=== PATIENT | female | born 1950 | race Caucasian/White ===

== ENCOUNTER 2020-03-25 07:17 | Outpatient (CLI) | payer MEDICARE, SELFPAY ==
--- NOTE | 2020-03-25 07:23 | US_ITS ---
WS: [id number] Complete ABDOMINAL ULTRASOUND HISTORY: RLQ PAIN COMPARISON: None available. Liver: 15.8 cm in length. Liver is normal size and echogenicity with no mass or intrahepatic dilatati on. Gallbladder: Prior cholecystectomy. Pancreas: Poorly visualized pancreas. No abnormality of fluid seen. CBD: 0.3 cm. Right kidney: 9.8 cm x 4.2 cm x 4.5 cm. No mass, cortical thickening or hydronephrosis. Left kidney: 9.5 cm x 4.8 cm x 5.0 cm. No mass, cortical thickening or hydronephrosis. Spleen: Normal size spleen. A few scattered granulomata noted. Abdominal aorta and IVC are within normal limits. No ascites. US/US abdomen complete* [id number] IMPRESSION: 1. Prior cholecystectomy. 2. No bile duct dilatation. 3. Negative kidneys.
== END 2020-03-25 07:18 | disposition home or self-care (01) ==
LOC: RAD 07:20
PROVIDERS: Family Provider Nurse Practitioner Family; Visit Provider Nurse Practitioner Family
DX: R10.31 Right lower quadrant pain (principal)
CPT/HCPCS: 76700

== ENCOUNTER 2020-07-08 11:03 | Emergency (ER) | payer MEDICARE, SELFPAY ==
[2020-07-08 11:09] VITALS: BP 173/97; PULSE 92; RESP 18; TEMP 36.9; O2SAT 95; BMI 29.0
[2020-07-08 11:15] VITALS: BP 173/97; PULSE 96; RESP 16; O2SAT 94
--- NOTE | 2020-07-08 11:21 | CT_ITS ---
WS: [id number] CT HEAD TECHNIQUE: Noncontrast CT of the head obtained from the skullbase to the vertex. CLINICAL INFORMATION: slurred speech/SILVERIO COMPARISON: CT 3 and April 19, 2007 DLP: 1087.[address] scans at [facility] use at least one of these dose optimization techniques: automat ed exposure control; mA and/or kV adjustment per patient size (includes targeted exams where dose is matched to clinical indication); or iterative reconstruction. FINDINGS: No evidence of intracranial hemorrhage or mass effect. Ventricular system and basal cisterns are chambers nt. Mild small vessel changes with mild parenchymal volume loss. 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 Low-lying cerebellar tonsils unchanged. Chronic lacunar infarcts left lateral basal ganglia. No extra -axial fluid collections.Normal darling-white differentiation. 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 Paranasal sinuses and mastoid air cells are well aerated. .Normal visualized soft tissues. CT/CT head wo con* [id number] IMPRESSION: 1. No evidence of intracranial hemorrhage or mass effect. 2. Stable posterior fossae Dandy-Walker variant unchanged. 3. No hydrocephalus. 4. No acute intracranial findings. Attempted notification Jerica Gamez MD at 07/08/2020 12:31 PM.
[2020-07-08] MEDS: diphenhydrAMINE 50 mg/mL SDV 1mL IVP (11:27)
[2020-07-08] MEDS: famotidine 20 mg/2 mL INJ 40 MG IVP (11:29)
--- NOTE | 2020-07-08 11:29 | ECG_ITS ---
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 Measurements Intervals [place] Rate: 89 P: 66 HI: 130 QRS: 18 QRSD: 86 T: 26 QT: 387 QTc: 473 Interpretive Statements SINUS RHYTHM NONSPECIFIC T-WAVE ABNORMALITY Compared to ECG 04/22/2019 10:43:07 T-wave abnormality now present Possible ischemia no longer present Electronically Signed On 07-08-2020 21:40:29 CDT by Luanne Quintana M.D. [id number]
--- NOTE | 2020-07-08 11:29 | XRR_ITS ---
PROCEDURE INFORMATION: Exam: XR Chest, 1 View Exam date and time: 07/08/2020 11:40 AM Age: 70 years old Clinical indication: Shortness of breath; Additional info: SOB TECHNIQUE: Imaging protocol: XR of the chest Views: 1 view. COMPARISON: CT chest con [id number] 06/26/2019 1:11 PM FINDINGS: Lungs: Few mild interstitial fibrotic densities are present which can also be seen on old CT scan. Otherwise lungs are clear. Pleural space: Unremarkable. No pleural effusion. No pneumothorax. Heart/Mediastinum: Unremarkable. No cardiomegaly. Bones/joints: Unremarkable. XR/XR chest 1V portable [id number] IMPRESSION: No acute abnormality.
[2020-07-08] MEDS: ondansetron 2 mg/ML SDV 2 mL 4 MG IVP (11:45)
--- NOTE | 2020-07-08 11:48 | ED_ITS ---
HPI - Allergic Reaction General: Chief complaint: Allergic Reaction Stated complaint: Allergic reaction Time Seen by Provider: 07/08/20 11:09 History of Present Illness: HPI narrative: This patient is a 70-year-old female who comes in today with complaints of thinking that she had an allergic reaction to some peach pie that she ate last night. She said her symptoms started last night but her daughter did not become aware of them until this morning. She said she feels like her throat is closing and her mouth is extremely dry. She says she is unable to swallow but she is managing her secretions. She was not able to swallow a Benadryl pill this morning and that is why her daughter brought her in. She has had episodes like this before but her daughter says is never really been confirmed that they were allergic reactions. The patient says that she almost was intubated one time in the past. She also has a history of Dandy-Walker variation and has had a seizure history as well. She also has a history of hypertension. She has been out of her at [facility] and just got it refilled this morning but has not taken 1. Her medication lists in our system reflect lisinopril rather than atenolol. She takes Keppra for her seizures and that is also not on her current med list. She also complains of a headache in the posterior part of her head. Her daughter notes that her speech is slurred and that is not normal for her. She has no focal weakness. No facial droop. Denies visual changes. Onset (ago): day(s) (1) Exposure: food Associated symptoms: Reports dysphagia, hoarseness and other (Slurred speech, headache) Severity: moderate Treatment prior to arrival: none Previous Allergic Reaction History: prior ED visit(s) and angioedema (Possibly, per patient's description) Review of Systems General: Reports: 10 or more systems reviewed and unremarkable except in HPI and below Const: Denies: fever(s), chills, fatigue or malaise Eyes: Denies: change in vision ENMT: Reports: odynophagia, hoarseness, swelling of lips/tongue and dry mouth Card: Denies: chest pain or swelling of feet/ankles Resp: Denies: dyspnea, productive cough or non-productive cough GI: Reports: dysphagia : Denies: flank pain or difficulty voiding Musc: Denies: neck pain or back pain Skin/Breast: Denies: rash Neuro: Reports: headache(s); Denies: numbness in extremities or weakness in extremities Sterling/Lymph: Denies: easy bruising or easy bleeding Physical Exam Const: COMMON NORMALS: patient oriented x3 and alert GENERAL APPEARANCE: cooperative HENMT: HEAD & SCALP: normal to inspection FACE & SINUS: normal facial exam MOUTH: other (Mucous membranes dry however I do not see any evidence of any swelling of the tongue or posterior pharynx) Eye: GENERAL EYE: appearance normal, both eyes and all related structures Neck/C-Spine: COMMON NORMALS: supple, no meningeal signs and no JVD Chest: COMMONS NORMALS: normal inspection of the chest Resp: COMMON NORMALS: normal respiratory effort, No use of accessory muscles and clear to auscultation bilaterally AUSCULTATION: clear to auscultation bilaterally Cardio: COMMON NORMALS: no JVD, regular rate, regular rhythm and No murmurs present (Cardio) RATE: regular rate RHYTHM: regular rhythm GI: COMMON NORMALS: Normal to inspection, nondistended, normoactive bowel sounds present, Soft to palpation and non-tender INSPECTION: Yes normal to inspection AUSCULTATION: Yes normoactive bowel sounds PALPATION: Yes Soft to palpation Back/Pelvis: COMMON NORMALS: thoracic and lumbar spine normal to inspection Extremity: COMMON NORMALS: normal to inspection Neuro: COMMON NORMALS: patient oriented x3, moves all extremities, no focal motor deficits and no sensory deficits noted SENSORIUM/ORIENTATION: Yes alert MENINGEAL SIGNS: Yes no meningeal signs CRANIAL NERVES: Yes other (Slurred speech but no clear cranial nerve deficit.) SPEECH: abnormal speech Details: slurred Psych: COMMON NORMALS: mental status grossly normal, cooperative and normal affect Skin: COMMON NORMALS: no rashes or lesions noted and turgor normal GENERAL SKIN EXAM: no rashes or lesions noted and turgor normal Course ED course: The patient symptoms almost completely resolved after treatment for allergy. If this is an allergic reaction is significantly mild 1. We discussed other possible diagnoses such as partial seizures, lisinopril, stroke. I think the lisinopril is unlikely as she has been having the symptoms and episodes for about 20 years and has only been on the lisinopril for about 6 months. I do think that partial seizure could explain her symptoms. I do not think she has had a stroke. Again, with 20 years of episodes like this it is unlikely that would be the explanation. She has not seen a neurologist. I recommended that perhaps she should. I do not think this is anything to do with her Chiari malformation or Dandy-Walker issues. CT head was negative today. The rest of her work-up was also normal. Vital Signs: Vital signs: Vital Signs Temperature 98.5 F 07/08/20 11:09 Pulse Rate 89 07/08/20 14:01 Respiratory Rate 16 07/08/20 16:04 Blood Pressure 130/72 07/08/20 16:04 Pulse Oximetry 97 07/08/20 16:04 MDM - Allergic Reaction Lab Data: Labs: Lab Results 07/08/20 07/08/20 07/08/20 Range/Units 12:42 12:42 12:42 WBC 7.2 (4.0-10.0) 10^3/ uL RBC 4.32 (4.1-5.3) 10^6/u L Hgb 12.6 (11.5-15.3) g/dL Hct 40.8 (37.0-47.0) % MCV 94.4 (81-99) fL MCH 29.2 (28.0-34.0) pg MCHC 30.9 (30.0-36.0) g/dL RDW 12.5 (12.1-15.1) % Plt Count 207 (130-400) 10^3/c mm MPV 11.9 H (7.4-10.4) fL Neut % (Auto) 53.5 % Lymph % (Auto) 31.4 % [place]field % (Auto) 7.7 % Eos % (Auto) 5.7 % Baso % (Auto) 1.1 % Neut # (Auto) 3.87 (1.8-7.7) 10^3/u L Lymph # (Auto) 2.3 (0.8-4.8) 10^3/u L Whitfield # (Auto) 0.6 (0.2-0.9) 10^3/u L Eos # (Auto) 0.4 (0.0-0.8) 10^3/u L Baso # (Auto) 0.1 (0.0-0.1) 10^3/u L Nucleated RBC % (a uto) 0 % Nucleated RBCs # 0.0 /100WBC Sodium 143 (136-145) mmol/L Potassium 4.0 (3.5-5.1) mmol/L Chloride 107 (98-107) mmol/L Carbon Dioxide 26 (22-29) mmol/L Anion Gap 14.0 (5-19) BUN 15 (8-23) mg/dL Creatinine 0.8 (0.5-0.9) mg/dL GFR Calculation 70.9 L (90-130) mL/min Glucose 93 (65-115) mg/dL Calculated Osmolal ity 297 H (285-295) mOsm/k g Calcium 8.9 (8.5-10.5) mg/dL Total Bilirubin 0.4 (0.15-1.2) mg/dL AST 18 (0-32) U/L ALT 17 (0-33) U/L Alkaline Phosphata se 81 (35-105) IU/L Troponin T Baselin e 10 (0-10) ng/L Troponin T 120 Min sun'aq (0-10) ng/L Delta Troponin T (0-10) ABS# Total Protein 6.3 L (6.6-8.7) g/dL Albumin 3.9 (3.5-5.2) g/dL Globulin 2.4 (1.3-4.6) g/dL 07/08/ Range/Units 14:46 WBC (4.0-10.0) 10^3/ uL RBC (4.1-5.3) 10^6/u L Hgb (11.5-15.3) g/dL Hct (37.0-47.0) % MCV (81-99) fL MCH (28.0-34.0) pg MCHC (30.0-36.0) g/dL RDW (12.1-15.1) % Plt Count (130-400) 10^3/c mm MPV (7.4-10.4) fL Neut % (Auto) % Lymph % (Auto) % Whitfield % (Auto) % Eos % (Auto) % Baso % (Auto) % Neut # (Auto) (1.8-7.7) 10^3/u L Lymph # (Auto) (0.8-4.8) 10^3/u L Whitfield # (Auto) (0.2-0.9) 10^3/u L Eos # (Auto) (0.0-0.8) 10^3/u L Baso # (Auto) (0.0-0.1) 10^3/u L Nucleated RBC % (a uto) % Nucleated RBCs # /100WBC Sodium (136-145) mmol/L Potassium (3.5-5.1) mmol/L Chloride (98-107) mmol/L Carbon Dioxide (22-29) mmol/L Anion Gap (5-19) BUN (8-23) mg/dL Creatinine (0.5-0.9) mg/dL GFR Calculation (90-130) mL/min Glucose (65-115) mg/dL Calculated Osmolal ity (285-295) mOsm/k g Calcium (8.5-10.5) mg/dL Total Bilirubin (0.15-1.2) mg/dL AST (0-32) U/L ALT (0-33) U/L Alkaline Phosphata se (35-105) IU/L Troponin T Baselin e (0-10) ng/L Troponin T 120 Min sun'aq 7.70 (0-10) ng/L Delta Troponin T -2.30 L (0-10) ABS# Total Protein (6.6-8.7) g/dL Albumin (3.5-5.2) g/dL Globulin (1.3-4.6) g/dL Discharge Plan Discharge Patient Disposition: Home Clinical Impression: Dysarthria Allergic reaction Qualifiers: Encounter type: initial encounter Qualified Code(s): T78.40XA - Allergy, unspecified, initial encounter Condition: Stable Prescriptions: No Action gabapentin 600 mg tablet 600 mg PO TID RF: 0 duloxetine 60 mg capsule,delayed release(DR/EC) 60 mg PO DAILY Qty: 90 RF: 0 glipizide 2.5 mg tablet extended release 24hr 2.5 mg PO DAILY RF: 0 ranitidine HCl 150 mg capsule PO RF: 0 lisinopril 2.5 mg tablet 2.5 mg PO DAILY RF: 0 diphenhydramine HCl [Benadryl] 25 mg capsule 25 mg PO DAILY PRNRF: 0 Jardiance 10 mg tablet 10 mg PO DAILY RF: 0 levocetirizine [Allergy Relief (levocetirizin)] 5 mg tablet 5 mg PO DAILY RF: 0 aspirin [Adult Aspirin Regimen] 81 mg tablet,delayed release (DR/EC) 81 mg PO DAILY RF: 0 Discharge Orders: Discharge Order (Routine); Ordered 07/08/20 Ordered By: Jerica Gamez Referrals: Denae Vuong MD [Physician] - Tania Dawson NP [Primary Care Provider] - Discharge Diet: Usual diet Discharge Activity: Resume usual activity Patient Instructions: Food Allergy (ED) Activity Restrictions/Additional Instructions: Follow-up with Dr. Vuong. Discuss your concerns about the oxygen level with her. It may be helpful to get a pulse oximeter so you can monitor your blood oxygen at home. Also ask about seeing a neurologist for evaluation of these episodes as they potentially could be related to seizure or some other neurologic issue. Discharge Date/Time: 07/08/20 16:06 Coding Level of Care Code ED [employer] Science Teacher for Chg Fwd Exam Comprehensive
[2020-07-08 13:07] LABS: Basophils # 0.1 10^3/uL (0.0-0.1); Basophils % 1.1 %; Eosinophils # 0.4 10^3/uL (0.0-0.8); Eosinophils % 5.7 %; Hematocrit 40.8 % (37.0-47.0); Hemoglobin 12.6 g/dL (11.5-15.3); Lymphocytes # 2.3 10^3/uL (0.8-4.8); Lymphocytes % 31.4 %; Mean Corpuscular HGB Conc 30.9 g/dL (30.0-36.0); Mean Corpuscular Hemoglobin 29.2 pg (28.0-34.0); Mean Corpuscular Volume 94.4 fL (81-99); Mean Platelet Volume 11.9 fL (7.4-10.4); Monocytes # 0.6 10^3/uL (0.2-0.9); Monocytes % 7.7 %; Neutrophils # 3.87 10^3/uL (1.8-7.7); Neutrophils % 53.5 %; Nucleated Red Blood Cells % 0 %; Platelet Count 207 10^3/cmm (130-400); Red Blood Count 4.32 10^6/uL (4.1-5.3); Red Cell Distribution Width 12.5 % (12.1-15.1); White Blood Count 7.2 10^3/uL (4.0-10.0)
[2020-07-08 13:11] VITALS: BP 130/78; PULSE 86; RESP 15; O2SAT 93
[2020-07-08 13:16] LABS: Alanine Aminotransferase 17 U/L (0-33); Albumin Level 3.9 g/dL (3.5-5.2); Alkaline Phosphatase 81 IU/L (35-105); Aspartate Amino Transferase 18 U/L (0-32); Blood Urea Nitrogen 15 mg/dL (8-23); Calcium 8.9 mg/dL (8.5-10.5); Carbon Dioxide 26 mmol/L (22-29); Chloride 107 mmol/L (98-107); Creatinine Clr Calc Pharmacy 70.4897; Globulin 2.4 g/dL (1.3-4.6); Glomerular Filtration Rate 70.9 mL/min (90-130); Glucose 93 mg/dL (65-115); Osmolality Calculated 297 mOsm/kg (285-295); Sodium 143 mmol/L (136-145); Total Bilirubin 0.4 mg/dL (0.15-1.2); Total Protein 6.3 g/dL (6.6-8.7)
[2020-07-08 13:17] LABS: Troponin(5th) Baseline 10 ng/L (0-10)
[2020-07-08 14:01] VITALS: BP 134/81; PULSE 89; RESP 21; O2SAT 99
[2020-07-08 16:04] VITALS: BP 130/72; RESP 16; O2SAT 97
--- NOTE | 2020-07-08 17:29 | ECG_ITS ---
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 Measurements Intervals [place] Rate: 84 P: 60 [place]: 144 QRS: 15 QRSD: 86 T: 27 QT: 401 QTc: 477 Interpretive Statements SINUS RHYTHM NONSPECIFIC T-WAVE ABNORMALITY Compared to ECG 07/08/2020 11:54:37 No significant changes Electronically Signed On 07-08-2020 21:46:21 CDT by Luanne Quintana M.D. [id number]
== END 2020-07-08 16:06 | disposition home or self-care (01) ==
PROVIDERS: Emergency Provider Emergency Medicine; PCP Nurse Practitioner Family
DX: T78.40XA Allergy, unspecified, initial encounter (principal); R47.1 Dysarthria and anarthria; Z79.82 Long term (current) use of aspirin; Z79.84 Long term (current) use of oral hypoglycemic drugs
CPT/HCPCS: 12345; 70450; 71045; 80053; 84484; 85025; 93005; 96374; 96375; 99283; 99284; J1200; J2405; J2930; J3490

== ENCOUNTER 2020-08-01 10:36 | Outpatient (CLI) | payer MEDICARE, SELFPAY | END 2020-08-01 10:37 | disposition home or self-care (01) | LOC: LAB 10:42 | PROVIDERS: PCP Family Medicine; Visit Provider Internal Medicine Pulmonary Disease | DX: T78.3XXA Angioneurotic edema, initial encounter (principal); X58.XXXA Exposure to other specified factors, initial encounter | CPT/HCPCS: 36415; 86160 ==

== ENCOUNTER → 2020-08-02 12:29 | Outpatient (BNVA) | payer MEDICARE, SELFPAY | PROVIDERS: PCP Family Medicine; Visit Provider Internal Medicine Pulmonary Disease | DX: Z11.59 Encounter for screening for other viral diseases (principal); R06.02 Shortness of breath | CPT/HCPCS: 87635 ==

== ENCOUNTER 2020-08-06 09:57 | Outpatient (CLI) | payer MEDICARE, SELFPAY ==
--- NOTE | 2020-08-06 09:33 | PFTS_ITS ---
Date of Study:08/06/20 Date of Dictation: 08/07/2020 MECHANICS: Forced vital capacity (FVC) is 85% normal Forced expiratory volume in one second (FEV1) is 98% normal FEV1/FVC is normal FLOW VOLUME LOOP: Normal . LUNG VOLUMES: Total lung capacity (TLC) is normal. Residual volume (RV) is . Normal DIFFUSING CAPACITY FOR CARBON MONOXIDE: 63% mild reduction in gas transfer . INTERPRETATION: The pulmonary function tests are normal with isolated mild reduction in gas transfer suspected pulmonary vascular disease. Please correlate clinically MTDD
--- NOTE | 2020-08-06 10:45 | PFTS_ITS ---
Date of Study:08/06/20 Date of Dictation: MECHANICS: Forced vital capacity (FVC) is . Forced expiratory volume in one second (FEV1) is . FEV1/FVC is . FLOW VOLUME LOOP: . LUNG VOLUMES: Total lung capacity (TLC) is . Residual volume (RV) is . DIFFUSING CAPACITY FOR CARBON MONOXIDE: . INTERPRETATION: The pulmonary function tests are . mechanics and lung volumes. Gas exchange (DLCO) is . MTDD
--- NOTE | 2020-08-06 11:30 | CT_ITS ---
WS: [id number] CT CHEST high-resolution. HISTORY: rule out interstitial lung disease TECHNIQUE: High-resolution CT performed with inspiration, expiration, supine and prone positioning. C oronal and sagittal reformats are submitted. All CT scans at [facility] use at least one of these dose optimization techniques: automated exposure control; mA and/or kV adjustment per patien t size (includes targeted exams where dose is matched to clinical indication); or iterative reconstru ction. CONTRAST: None DLP: 259.99 mGy.cm COMPARISON: 06/26/2019 3 mm stable nodule RIGHT upper lung is unchanged since 10/06/2016. Lungs are mildly hyperexpanded. The re is some very minimal atelectasis in the anterior RIGHT upper lobe. No honeycombing or significant peripheral reticulations are identified. Interstitium tapers normally towards the periphery. On the e xpiration film there is volume loss bilaterally with increasing areas of groundglass opacification co nsistent with normal excretory findings. No definite bronchiectasis. Bronchoarterial ratio does not e xceed 1.0. No pleural effusion or pericardial effusion. Thyroid is enlarged and extends slightly substernal. Prior cholecystectomy. CT/CT chest wo con [id number] IMPRESSION: 1. No significant interstitial lung disease identified. There is no honeycombi ng or reticulation. 2. No bronchiectasis.
== END 2020-08-06 09:58 | disposition home or self-care (01) ==
PROVIDERS: PCP Family Medicine; Visit Provider Internal Medicine Pulmonary Disease
DX: R06.02 Shortness of breath (principal); J44.9 Chronic obstructive pulmonary disease, unspecified
CPT/HCPCS: 71250; 94010; 94618; 94726; 94729

== ENCOUNTER 2021-02-19 10:44 | Outpatient (CLI) | payer MEDICARE, SELFPAY ==
--- NOTE | 2021-02-19 11:00 | MR_ITS ---
WS: [id number] MRI RIGHT KNEE HISTORY: RIGHT ANTERIOR KNEE PAIN COMPARISON: RIGHT knee radiographs 01/27/2021 Anterior cruciate ligament: Intact. Posterior cruciate ligament: Intact. Medial collateral ligament: Intact. Posterior lateral corner structures: Negative. Medial menisci: Very small amount of increased signal in the posterior horn. No tear identified. Lateral meniscus: Intact. Normal signal, size and shape. Extensor mechanism: Distal quadriceps tendon and patellar tendons are intact. Fluid and soft tissue: No joint effusion. No Bustillo's cyst. Osseous and articular structures: Patellofemoral compartment: Mild narrowing of patellofemoral joint space. Subchondral cystic changes are noted along the posterior surface of the patella near the patellar eminence and in the lateral fa cet. There is mild thinning and loss of cartilage. Full thickness cartilage defect measures 4 mm at t he patellar eminence. Medial compartment: Mild narrowing of the medial compartment. No marrow edema. Very minimal fissuring of the cartilage. Lateral compartment: Very minimal narrowing of the lateral compartment with fissuring of the cartilag e. MR/MR knee RT wo con* [id number] IMPRESSION: 1. 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 2. Subchondral cystic changes along the posterior surface of the patella, grea test along the lateral facet. 3. No meniscal tear is identified.
== END 2021-02-19 10:45 | disposition home or self-care (01) ==
PROVIDERS: PCP Family Medicine; Visit Provider Family Medicine
DX: M25.561 Pain in right knee (principal); M22.41 Chondromalacia patellae, right knee
CPT/HCPCS: 73721

== ENCOUNTER → 2021-02-20 12:03 | Outpatient (BNVA) | payer MEDICARE, SELFPAY | PROVIDERS: PCP Family Medicine; Referring Provider Family Medicine; Visit Provider Specialist | DX: M25.561 Pain in right knee (principal); M25.761 Osteophyte, right knee | CPT/HCPCS: 73560; 73565 ==

== ENCOUNTER 2021-03-25 08:37 | Day surgery (SDC) | payer MEDICARE, SELFPAY ==
[2021-03-25] VITALS (22 sets, daily range): BP systolic 92–125; BP diastolic 50–62; PULSE 56–92; RESP 12–22; TEMP 36.3–36.6; O2SAT 91–97; BMI 29.9
--- NOTE | 2021-03-25 09:05 | PC.NURSE ---
Patient reports that she has had abdominal pain for the last 5 days. Reports presence of nausea, diarrhea, headache, and fever. Reports pain as a 6 on the numeric pain scale and describes as cramping. Reports that she has had diaphoresis present during this time. Reports pain to RLQ.
--- NOTE | 2021-03-25 09:11 | XRR_ITS ---
PROCEDURE INFORMATION: Exam: XR Abdomen Exam date and time: 03/25/2021 9:11 AM Age: 70 years old Clinical indication: Abdominal pain; Localized; Right lower quadrant (rlq); Patient HX: SOB, fever, cramping; Additional info: Rlq abd pain TECHNIQUE: Imaging protocol: XR of the abdomen. Views: Frontal supine view of the abdomen. 1 View. COMPARISON: CR XR knees AP WB w RT lmt ORTH 02/20/2021 12:10 PM FINDINGS: Gastrointestinal tract: No dilated gas-filled loops of bowel. No calcified appendicolith identified. Organs: Clips in the right upper quadrant from a prior cholecystectomy. Bones/joints: Multilevel disc degeneration and facet arthropathy in the lower lumbar spine. Other findings: No radiopaque calculi. XR/XR KUB portable [id number] IMPRESSION: No acute abnormality.
--- NOTE | 2021-03-25 09:11 | XRR_ITS ---
PROCEDURE INFORMATION: Exam: XR Chest Exam date and time: 03/25/2021 9:11 AM Age: 70 years old Clinical indication: Cough and shortness of breath; Patient HX: SOB, fever, cramping, right shoulder pain; Additional info: Abd pain; Cough TECHNIQUE: Imaging protocol: XR of the chest. Views: 1 view. COMPARISON: CT chest wo con [id number] 08/06/2020 11:31:02 AM FINDINGS: Lungs: No pneumonia or pulmonary edema. Pleural spaces: No pleural effusion or pneumothorax. Heart/Mediastinum: The cardiac silhouette is not enlarged. The mediastinal contours are normal. Bones/joints: No acute osseous abnormality. XR/XR chest 1V portable [id number] IMPRESSION: No acute abnormality.
--- NOTE | 2021-03-25 09:13 | ECG_ITS ---
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: : 1950 Requested By: Edwin Car Order Number: [id number] Reading MD: LEV GUILLORY Measurements Intervals [place] Rate: 77 P: 38 PA: 158 QRS: -3 QRSD: 91 T: 16 QT: 395 QTc: 447 Interpretive Statements SINUS RHYTHM MODERATE VOLTAGE CRITERIA FOR LVH, CONSIDER NORMAL VARIANT [MEETS CRITERIA IN ONE OF: R(aVL), S(V1), R(V5), R(V5/V6)+S(V1)] INFERIOR MYOCARDIAL INFARCTION [40+ ms Q WAVE AND/OR ST/T ABNORMALITY IN II/aVF], PROBABLY OLD Compared to ECG 07/08/2020 13:47:04 Myocardial infarct finding now present T-wave abnormality no longer present Electronically Signed On 03-25-2021 20:12:30 CDT by LEV GUILLORY [id number]
--- NOTE | 2021-03-25 09:15 | ED_ITS ---
HPI - Abdominal Pain General: Chief Complaint: Abdominal Pain Stated Complaint: Cramps, Fever, N/D Time Seen by Provider: 03/25/21 08:56 Source: patient and family Mode of arrival: ambulatory Limitations: no limitations History of Present Illness: HPI narrative: Patient with complaints of right lower quadrant abdominal pain for the past 5 days. Patient said diarrhea and nausea. Patient denies any blood in her stool. She has had intermittent fever over the past 5 days. Patient said decreased appetite and intermittent diaphoresis and mild to moderate frontal headache. Patient reports chronic cough due to her COPD. Intermittent mild shortness of breath. No shortness of breath now. No vomiting. Main complaint is right lower quadrant abdominal pain. She still has her appendix. She does have past surgical history of cholecystectomy, , total abdominal hysterectomy and BSO. Patient has a history of COPD, diabetes mellitus and hypertension MD elicited complaint: abdominal pain Pertinent past history: other (See nursing assessment) Onset (ago): day(s) (5) Pain Consistency: constant Location: RLQ Severity: moderate Quality: aching and sharp Radiation: none Migration to: no migration Exacerbating factors: nothing Relieving factors: nothing Associated Symptoms: Reports anorexia, change in stool character, diarrhea, fever(s), nausea and poor appetite; Denies constipation, dysuria, hematochezia, hematuria, hematemesis, melena and vomiting Review of Systems Const: Reports: fever(s), change in appetite (Poor appetite), fatigue and diaphoresis Eyes: Denies: change in vision ENMT: Denies: throat pain Card: Denies: chest pain or palpitations Resp: Reports: non-productive cough; Denies: dyspnea or wheezing GI: Reports: abdominal pain, nausea, diarrhea and change in stool character; Denies: vomiting, hematemesis, constipation, hematochezia or melena : Denies: flank pain, dysuria or hematuria Musc: Denies: neck pain or back pain Skin/Breast: Denies: rash or pruritus Neuro: Reports: headache(s); Denies: numbness in extremities, weakness in extremities or Slurred speech present Psych: Denies: anxiety [place]/Lymph: Denies: enlarged lymph nodes PFSH ED PFSH: Medical History COPD (chronic obstructive pulmonary disease) Diabetes mellitus History of malignant melanoma Hypertension Nodule of right lung Seizures Social History Smoking and tobacco status: former smoker Quit status (tobacco): has quit using tobacco Year quit tobacco: 2004 [id number] Second hand smoke exposure: Yes Smoking risk assessment/counseling performed?: Yes Alcohol intake: current Alcohol intake frequency: holidays/special occasions only Desire information about alcohol rehabilitation?: No Counseling given: No Caregiver/support person: Yes Lives independently: Yes Household members: spouse Housing: House Marital status: Current occupational status: retired History of recent travel: No Current gender identity: Female Physical Exam Const: COMMON NORMALS: patient oriented x3, no limitations, alert and well nourished (Obese) GENERAL APPEARANCE: cooperative OTHER: Moderate discomfort due to right lower quad abdominal pain. Patient also has a mild headache. Patient is nauseated. She has mild diaphoresis. HENMT: COMMON NORMALS: normocephalic and atraumatic HEAD & SCALP: normocephalic and atraumatic FACE & SINUS: normal facial exam Eye: COMMON NORMALS: Equal, round and reactive pupils present and EOMs intact bilaterally PUPIL: Yes Equal, round and reactive pupils present OTHER: No photophobia Neck/C-Spine: COMMON NORMALS: full ROM, no lymphadenopathy, supple, no meningeal signs and no JVD GENERAL: Yes normal visual inspection Lymph: LYMPHATIC: no lymphadenopathy noted Chest: COMMONS NORMALS: normal inspection of the chest and normal palpation of entire chest wall CHEST: No Ecchymosis present and No rash Resp: COMMON NORMALS: normal respiratory effort, No retractions, No use of accessory muscles and clear to auscultation bilaterally EFFORT & INSPECTION: No respiratory distress AUSCULTATION: clear to auscultation bilaterally Cardio: COMMON NORMALS: no JVD, regular rate, regular rhythm and Peripheral pulses 2+ throughout JUGULAR VENOUS DISTENTION: no JVD RATE: regular rate RHYTHM: regular rhythm PERIPHERAL PULSES: Peripheral pulses 2+ throughout OTHER: Capillary refill normal bilaterally GI: COMMON NORMALS: Soft to palpation and No hepatosplenomegaly present AUSCULTATION: Yes normoactive bowel sounds PALPATION: Yes Soft to palpation, Yes Tenderness to palpation present (GI) (Moderate tenderness right lower quadrant. No guarding or rebound.) and Yes No hepatosplenomegaly present Extremity: COMMON NORMALS: normal to inspection, full ROM and capillary refill normal Neuro: COMMON NORMALS: patient oriented x3, CN's II-XII intact bilaterally, no focal motor deficits and no sensory deficits noted SENSORIUM/ORIENTATION: Yes alert MENINGEAL SIGNS: Yes no meningeal signs Psych: COMMON NORMALS: mental status grossly normal and Normal thought process present THOUGHT PROCESS: Normal thought process present Skin: COMMON NORMALS: no rashes or lesions noted and no wounds GENERAL SKIN EXAM: no rashes or lesions noted Course Vital Signs: Vital signs: Vital Signs Temperature 98 F 03/25/21 09:02 Pulse Rate 78 03/25/21 11:00 Respiratory Rate 18 03/25/21 11:00 Blood Pressure 105/52 03/25/21 11:00 Pulse Oximetry 94 03/25/21 11:00 MDM - Abdominal Pain MDM Narrative: Medical decision making narrative: 1138: Case discussed with Dr. Frost general surgeon. He plans to take to the patient to the operating room today for appendectomy. Differential Diagnosis: Differential diagnosis abdominal pain: Likely abdominal pain, acute appendicitis, diverticulitis and small bowel obstruction Lab Data: Attestation: I reviewed the patient's lab results. Labs: Lab Results 03/25/21 03/25/21 03/25/21 Range/Units 09:29 09:30 09:30 WBC (4.0-10.0) 10^3/ uL RBC (4.1-5.3) 10^6/u L Hgb (11.5-15.3) g/dL Hct (37.0-47.0) % MCV (81-99) fL MCH (28.0-34.0) pg MCHC (30.0-36.0) g/dL RDW (12.1-15.1) % Plt Count (130-400) 10^3/c mm MPV (7.4-10.4) fL Neut % (Auto) % Lymph % (Auto) % [place] % (Auto) % Eos % (Auto) % Baso % (Auto) % Neut # (Auto) (1.8-7.7) 10^3/u L Lymph # (Auto) (0.8-4.8) 10^3/u L [place] # (Auto) (0.2-0.9) 10^3/u L Eos # (Auto) (0.0-0.8) 10^3/u L Baso # (Auto) (0.0-0.1) 10^3/u L Nucleated RBC % (a uto) % Nucleated RBCs # /100WBC Specimen Type Arterial Sample Site Radial, right ABG pH 7.45 (7.35-7.45) ABG pCO2 38.0 (35-45) mmHg ABG pO2 62.1 L (80.0-100.0) mmH g ABG HCO3 26.5 H (22-26) mmol/L ABG Base Excess 2.5 H (-2.0-2.0) mmol/ L Chato Test Pos Hematocrit 43.7 (37-47) % Hgb O2 Saturation 92.3 L (95-100) % Carboxyhemoglobin 0.5 (0.4-20.1) %THgb Methemoglobin 0.6 (0.4-1.5) % Total Hemoglobin 14.3 (12-16) g/dL O2 Delivery Device Room air FiO2 21.0 % [employer] Worker ID [place]ro Sodium (136-145) mmol/L Potassium (3.5-5.1) mmol/L Chloride (98-107) mmol/L Carbon Dioxide (22-29) mmol/L Anion Gap (5-19) BUN (8-23) mg/dL Creatinine (0.5-0.9) mg/dL GFR Calculation (90-130) mL/min Glucose (65-115) mg/dL Calculated Osmolal ity (285-295) mOsm/k g Lactate (0.5-2.2) mmol/L Calcium (8.5-10.5) mg/dL Total Bilirubin (0.15-1.2) mg/dL AST (0-32) U/L ALT (0-33) U/L Alkaline Phosphata se (35-105) IU/L Total Protein (6.6-8.7) g/dL Albumin (3.5-5.2) g/dL Globulin (1.3-4.6) g/dL Lipase (13-60) U/L Influenza Type A A g Negative (Negative) Influenza Type B A g Negative (Negative) SARS-CoV-2 Ag (Rap id) Negative (Negative) 03/25/21 03/25/21 03/25/21 Range/Units 09:50 09:50 09:50 WBC 8.2 (4.0-10.0) 10^3/ uL RBC 4.94 (4.1-5.3) 10^6/u L Hgb 14.5 (11.5-15.3) g/dL Hct 44.2 (37.0-47.0) % MCV 89.5 (81-99) fL MCH 29.4 (28.0-34.0) pg MCHC 32.8 (30.0-36.0) g/dL RDW 13.6 (12.1-15.1) % Plt Count 92 L (130-400) 10^3/c mm MPV 14.0 H (7.4-10.4) fL Neut % (Auto) 43.8 % Lymph % (Auto) 41.0 % [place] % (Auto) 13.1 % Eos % (Auto) 0.2 % Baso % (Auto) 0.9 % Neut # (Auto) 3.59 (1.8-7.7) 10^3/u L Lymph # (Auto) 3.4 (0.8-4.8) 10^3/u L [place] # (Auto) 1.1 H (0.2-0.9) 10^3/u L Eos # (Auto) 0.0 (0.0-0.8) 10^3/u L Baso # (Auto) 0.1 (0.0-0.1) 10^3/u L Nucleated RBC % (a uto) 0 % Nucleated RBCs # 0.0 /100WBC Specimen Type Sample Site ABG pH (7.35-7.45) ABG pCO2 (35-45) mmHg ABG pO2 (80.0-100.0) mmH g ABG HCO3 (22-26) mmol/L ABG Base Excess (-2.0-2.0) mmol/ L [place] Test Hematocrit (37-47) % Hgb O2 Saturation (95-100) % Carboxyhemoglobin (0.4-20.1) %THgb Methemoglobin (0.4-1.5) % Total Hemoglobin (12-16) g/dL O2 Delivery Device FiO2 % [employer] Worker ID Sodium 136 (136-145) mmol/L Potassium 3.8 (3.5-5.1) mmol/L Chloride 96 L (98-107) mmol/L Carbon Dioxide 29 (22-29) mmol/L Anion Gap 14.8 (5-19) BUN 14 (8-23) mg/dL Creatinine 1.2 H (0.5-0.9) mg/dL GFR Calculation 44.4 L (90-130) mL/min Glucose 140 H (65-115) mg/dL Calculated Osmolal ity 285 (285-295) mOsm/k g Lactate 1.5 (0.5-2.2) mmol/L Calcium 8.6 (8.5-10.5) mg/dL Total Bilirubin 0.6 (0.15-1.2) mg/dL AST 37 H (0-32) U/L ALT 28 (0-33) U/L Alkaline Phosphata se 88 (35-105) IU/L Total Protein 7.0 (6.6-8.7) g/dL Albumin 3.9 (3.5-5.2) g/dL Globulin 3.1 (1.3-4.6) g/dL Lipase 38 (13-60) U/L Influenza Type A A g (Negative) Influenza Type B A g (Negative) SARS-CoV-2 Ag (Rap id) (Negative) Imaging Data ^: KUB: Attestation: I personally reviewed and interpreted this imaging study as follows: My impression: Nothing acute on KUB CXR: Attestation: I personally reviewed and interpreted this imaging study as follows: My impression: Portable chest x-ray shows nothing acute. CT Abd/Pel: Radiologist's impression: [place] Espinoza #: [id number]: 1950Acct#:[id number]/Sex: 70 / FADM Date: 03/25/21Loc: ERRoom/Bed:Attending Dr: Ordering Provider/Ordering MD: Edwin Garcia MD Date of Service: 03/25/21 Procedure(s): CT abdomen pelvis w con* [id number] Accession Number(s): [id number] Report Number: [id number] WS: [id number] CT ABDOMEN AND PELVIS WITH CONTRAST HISTORY: pain TECHNIQUE: Imaging performed of the abdomen and pelvis with IV contrast. Single phase imaging of the abdomen. Coronal and sagittal reformats are submitted. All CT scans at [facility] use at least one of these dose optimization techniques: automated exposure control; mA and/or kV adjustment per patient size (includes targeted exams where dose is matched to clinical indication); or iterative reconstruction. IV CONTRAST: Omnipaque 300; 95 mL IV. Oral contrast: Yes. DLP: 1883.47 mGy.cm COMPARISON: None available. Lower thorax: Lung bases are clear. Heart is normal size. No hiatal hernia. Liver/biliary system: Normal size liver. Mild central bile duct dilatation is probably physiologic. Gallbladder: Status post cholecystectomy. Pancreas: Normal size pancreas and pancreatic duct. No adjacent inflammation. Spleen: Normal size spleen. No mass or infarct. Adrenal glands: Normal. Right kidney: Mild atrophy and diffuse focal areas of cortical thinning. No obstruction. Left kidney: Mild cortical atrophy with no obstruction. Aorta: Mild atherosclerosis with no aneurysm. Lymphadenopathy: None. Free fluid: None. GI tract: Mild dilatation and soft tissue inflammation involving the base of the appendix and the cecum. There is an area of decreased attenuation extending into the cecum and base of the appendix. High density within the wall of the cecum extending towards the appendix. This density could be oral contrast or calcification. The distal appendix is normal. Abdominal wall: Unremarkable abdominal wall. No hernia. Pelvis: No free fluid or adenopathy within the pelvis. Bones: Mild degenerative disc disease at L5-S1. CT/CT abdomen pelvis w con* [id number] IMPRESSION: 1. Focal dilatation and inflammatory change at the base of the appendix. Additional low-attenuation in the cecum. Consider acute appendicitis versus appendiceal mucocele. 2. No free fluid or free air. 3. Prior cholecystectomy. 4. No GI tract obstruction. Notified Edwinmacrina Garcia MD at 03/25/2021 11:35 AM. Dictated By:Nancy Ramirez DOSigned By:Nancy Ramirez DOSigned Date/Time:03/25/21 1137 EKG Data ^: EKG 1: Attestation: I personally reviewed and interpreted this EKG as follows: EKG interpretation date: 03/25/21 EKG interpretation time: 09:27 Prior EKG tracings: not available for review Interpretation: Normal sinus rhythm with normal axis. Heart rate 77, nonspecifi c ST-T changes, normal T waves, normal P waves, normal KS interval, normal QRS interval. Discharge Plan Discharge Patient Disposition: Placed in Observation Clinical Impression: Dehydration, mild, Nausea Acute appendicitis Qualifiers: Acute appendicitis type: unspecified acute appendicitis type Qualified Code(s): K35.80 - Unspecified acute appendicitis Diarrhea Qualifiers: Diarrhea type: unspecified type Qualified Code(s): R19.7 - Diarrhea, unspecified Coding Level of Care Code ED Slot Shift Supervisor for Chg Fwd Exam Comprehensive
[2021-03-25 09:43] LABS: ABG PH Result 7.45 (7.35-7.45); Arterial Blood Gas Hematocrit 43.7 % (37-47); Base Excess ABG 2.5 mmol/L (-2.0-2.0); Blood Gas Allen Test Pos; Blood Gas Operator Identificat MONRO; Blood Gas Sample Site Radial, right; Blood Gas Sample Type Arterial; Carboxyhemoglobin 0.5 %THgb (0.4-20.1); HCO3 ABG 26.5 mmol/L (22-26); HGB O2 Sat 92.3 % (95-100); Methemoglobin 0.6 % (0.4-1.5); Oxygen Device ROOM AIR; PO2 ABG 62.1 mmHg (80.0-100.0); Total Hemoglobin 14.3 g/dL (12-16)
[2021-03-25] MEDS: HYDROmorphone 1 mg/mL INJ 1 mL 0.5 MG IVP (10:01)
[2021-03-25] MEDS: sodium chloride 0.9% 1,000 ML 999 ML IV (10:02)
[2021-03-25] MEDS: ondansetron 2 mg/ML SDV 2 mL 4 MG IVP ×2 (10:02→17:39)
[2021-03-25 10:04] LABS: Basophils # 0.1 10^3/uL (0.0-0.1); Basophils % 0.9 %; Eosinophils % 0.2 %; Hematocrit 44.2 % (37.0-47.0); Hemoglobin 14.5 g/dL (11.5-15.3); Lymphocytes # 3.4 10^3/uL (0.8-4.8); Mean Corpuscular HGB Conc 32.8 g/dL (30.0-36.0); Mean Corpuscular Hemoglobin 29.4 pg (28.0-34.0); Mean Corpuscular Volume 89.5 fL (81-99); Monocytes # 1.1 10^3/uL (0.2-0.9); Monocytes % 13.1 %; Neutrophils # 3.59 10^3/uL (1.8-7.7); Neutrophils % 43.8 %; Nucleated Red Blood Cells % 0 %; Platelet Count 92 10^3/cmm (130-400); Red Blood Count 4.94 10^6/uL (4.1-5.3); Red Cell Distribution Width 13.6 % (12.1-15.1); White Blood Count 8.2 10^3/uL (4.0-10.0)
[2021-03-25 10:16] LABS: Alanine Aminotransferase 28 U/L (0-33); Albumin Level 3.9 g/dL (3.5-5.2); Alkaline Phosphatase 88 IU/L (35-105); Anion Gap 14.8 (5-19); Aspartate Amino Transferase 37 U/L (0-32); Blood Urea Nitrogen 14 mg/dL (8-23); Calcium 8.6 mg/dL (8.5-10.5); Carbon Dioxide 29 mmol/L (22-29); Chloride 96 mmol/L (98-107); Globulin 3.1 g/dL (1.3-4.6); Glomerular Filtration Rate 44.4 mL/min (90-130); Glucose 140 mg/dL (65-115); Lactate (Lactic Acid level) 1.5 mmol/L (0.5-2.2); Lipase 38 U/L (13-60); Osmolality Calculated 285 mOsm/kg (285-295); Potassium 3.8 mmol/L (3.5-5.1); Sodium 136 mmol/L (136-145); Total Bilirubin 0.6 mg/dL (0.15-1.2)
[2021-03-25 10:32] LABS: Influenza A by IFA Negative (Negative); Influenza B by IFA Negative (Negative); SARS Covid-2 Antigen Negative (Negative)
--- NOTE | 2021-03-25 10:33 | CT_ITS ---
WS: [id number] CT ABDOMEN AND PELVIS WITH CONTRAST HISTORY: pain TECHNIQUE: Imaging performed of the abdomen and pelvis with IV contrast. Single phase imaging of the abdomen. Coronal and sagittal reformats are submitted. All CT scans at [facility] use at least one of these dose optimization techniques: automated exposure control; mA and/or kV adjustment per patient size (includes targeted exams where dose is matched to clinical indication); or iterativ e reconstruction. IV CONTRAST: Omnipaque 300; 95 mL IV. Oral contrast: Yes. DLP: 1883.47 mGy.cm COMPARISON: None available. Lower thorax: Lung bases are clear. Heart is normal size. No hiatal hernia. Liver/biliary system: Normal size liver. Mild central bile duct dilatation is probably physiologic. Gallbladder: Status post cholecystectomy. Pancreas: Normal size pancreas and pancreatic duct. No adjacent inflammation. Spleen: Normal size spleen. No mass or infarct. Adrenal glands: Normal. Right kidney: Mild atrophy and diffuse focal areas of cortical thinning. No obstruction. Left kidney: Mild cortical atrophy with no obstruction. Aorta: Mild atherosclerosis with no aneurysm. Lymphadenopathy: None. Free fluid: None. GI tract: Mild dilatation and soft tissue inflammation involving the base of the appendix and the cec um. There is an area of decreased attenuation extending into the cecum and base of the appendix. High density within the wall of the cecum extending towards the appendix. This density could be oral cont rast or calcification. The distal appendix is normal. Abdominal wall: Unremarkable abdominal wall. No hernia. Pelvis: No free fluid or adenopathy within the pelvis. Bones: Mild degenerative disc disease at L5-S1. CT/CT abdomen pelvis w con* [id number] IMPRESSION: 1. Focal dilatation and inflammatory change at the base of the appendix. Addit ional low-attenuation in the cecum. Consider acute appendicitis versus appendic eal mucocele. 2. No free fluid or free air. 3. Prior cholecystectomy. 4. No GI tract obstruction. Notified Edwinmacrina Garcia MD at 03/25/2021 11:35 AM.
[2021-03-25 10:48] LABS: Slide Review Slide Review Perform
[2021-03-25] MEDS: iodixanol 320 mg/mL 100mL Btl IV (11:21)
[2021-03-25 11:51] LABS: Add Urine Microscopic? YES; Bilirubin Urine 1+ (Negative); Blood Urine 3+ (Negative); Glucose Urine UA Trace (Normal); Ketones Urine Negative (Negative); Leukocyte Esterase Urine 1+ (Negative); Nitrate Urine Negative (Negative); Protein Urine 1+ (Negative); Specific Gravity, Urine 1.005 (1.005-1.030); Urine Appearance Clear (CLEAR); Urine Color Yellow (Yellow); Urobilinogen Urine 4 mg/dL (Negative); pH Urine 6.5 (5-7)
--- NOTE | 2021-03-25 11:54 | PC.PHAR ---
pt states she takes care of her own medications-pt states she had a spiriva respimat inhaler and is no longer using it-pt states she hasnt used since around aug -ext med history shows last filled 09/10/2020-pt states she doesnt have any other inhalers
[2021-03-25 11:59] LABS: Add Urine Culture? No; Bacteria Urine 2+ /hpf
--- NOTE | 2021-03-25 13:54 | ANES.PREANE2 ---
Pre-Anesthetic Assessment Pre-Anesthetic Assessment: Height/Weight: Height 1.68 m Weight 84.368 kg Temp Pulse Resp BP Pulse Ox 98 F 74 18 111/58 94 03/25/21 09:02 03/25/21 13:02 03/25/21 13:02 03/25/21 13:02 03/25/21 13:02 Preop Diagnosis: Appendicitis/mucocele Proposed Procedure: Operation Date: 03/25/21 15:00 Proposed Procedures p Laparoscopic Appendectomy(Not Applicable) - Todd Frost MD Was Beta Lucy taken within 24 hours: Yes Was Clonidine taken within 24 hours: N/A Social: Social History: No alcohol and No tobacco Comment: Quit smoking in 2004 Exam: Pre-Anes Outpt Exam: alert, oriented x 3, clear to auscultation bilaterally and regular rate & rhythm Airway: Submandibular: WNL Cervical ROM: WNL MP: 2 Pulmonary: Pulmonary: COPD and Sleep apnea CV/HEM: CV/HEM: HTN : : None reported Hepatic: Hepatic: None reported GI: GI: None reported Metabolic: Metabolic: DM Musc/skel: Musc/skel: None reported Neuropsych: Neuropsych: Seizure Anesthetic Plan: ASA status: 3E Anesthesia: General PFSH Anesthesia PFSH: Medical History COPD (chronic obstructive pulmonary disease) Diabetes mellitus History of malignant melanoma Hypertension Nodule of right lung Seizures Social History Smoking and tobacco status: former smoker Quit status (tobacco): has quit using tobacco Year quit tobacco: 2004 [id number] Second hand smoke exposure: Yes Smoking risk assessment/counseling performed?: Yes Alcohol intake: current Alcohol intake frequency: holidays/special occasions only Desire information about alcohol rehabilitation?: No Counseling given: No Caregiver/support person: Yes Lives independently: Yes Household members: spouse Housing: House Marital status: Current occupational status: retired History of recent travel: No Current gender identity: Female Data Anesthesia CBC & Chem 7: 03/25/21 09:50 03/25/21 09:50 Other Labs: Laboratory Results - last 48 hr 03/25/21 03/25/21 03/25/21 09:29 09:30 09:30 WBC RBC Hgb Hct MCV MCH MCHC RDW Plt Count MPV Neut % (Auto) Lymph % (Auto) [place] % (Auto) Eos % (Auto) Baso % (Auto) Neut # (Auto) Lymph # (Auto) [place] # (Auto) Eos # (Auto) Baso # (Auto) Nucleated RBC % (auto) Nucleated RBCs # Specimen Type Arterial Sample Site Radial, right ABG pH 7.45 ABG pCO2 38.0 ABG pO2 62.1 L ABG HCO3 26.5 H ABG Base Excess 2.5 H Chato Test Pos Hematocrit 43.7 Hgb O2 Saturation 92.3 L Carboxyhemoglobin 0.5 Methemoglobin 0.6 Total Hemoglobin 14.3 O2 Delivery Device Room air FiO2 21.0 Contact Lens Lathe Operator ID Monro Sodium Potassium Chloride Carbon Dioxide Anion Gap BUN Creatinine GFR Calculation Glucose Calculated Osmolality Lactate Calcium Total Bilirubin AST ALT Alkaline Phosphatase Total Protein Albumin Globulin Lipase Urine Color Urine Appearance Urine pH Ur Specific [employer] Urine Protein Urine Glucose (UA) Urine Ketones Urine Blood Urine Nitrate Urine Bilirubin Urine Urobilinogen Ur Leukocyte Esterase Urine RBC Urine WBC Ur Squamous Epith Cells Amorphous Sediment Urine Bacteria Influenza Type A Ag Negative Influenza Type B Ag Negative SARS-CoV-2 Ag (Rapid) Negative 03/25/21 03/25/21 03/25/21 09:50 09:50 09:50 WBC 8.2 RBC 4.94 Hgb 14.5 Hct 44.2 MCV 89.5 MCH 29.4 MCHC 32.8 RDW 13.6 Plt Count 92 L MPV 14.0 H Neut % (Auto) 43.8 Lymph % (Auto) 41.0 [place] % (Auto) 13.1 Eos % (Auto) 0.2 Baso % (Auto) 0.9 Neut # (Auto) 3.59 Lymph # (Auto) 3.4 [place] # (Auto) 1.1 H Eos # (Auto) 0.0 Baso # (Auto) 0.1 Nucleated RBC % (auto) 0 Nucleated RBCs # 0.0 Specimen Type Sample Site ABG pH ABG pCO2 ABG pO2 ABG HCO3 ABG Base Excess Chato Test Hematocrit Hgb O2 Saturation Carboxyhemoglobin Methemoglobin Total Hemoglobin O2 Delivery Device FiO2 Contact Lens Lathe Operator ID Sodium 136 Potassium 3.8 Chloride 96 L Carbon Dioxide 29 Anion Gap 14.8 BUN 14 Creatinine 1.2 H GFR Calculation 44.4 L Glucose 140 H Calculated Osmolality 285 Lactate 1.5 Calcium 8.6 Total Bilirubin 0.6 AST 37 H ALT 28 Alkaline Phosphatase 88 Total Protein 7.0 Albumin 3.9 Globulin 3.1 Lipase 38 Urine Color Urine Appearance Urine pH Ur Specific [employer] Urine Protein Urine Glucose (UA) Urine Ketones Urine Blood Urine Nitrate Urine Bilirubin Urine Urobilinogen Ur Leukocyte Esterase Urine RBC Urine WBC Ur Squamous Epith Cells Amorphous Sediment Urine Bacteria Influenza Type A Ag Influenza Type B Ag SARS-CoV-2 Ag (Rapid) 03/25/21 11:00 WBC RBC Hgb Hct MCV MCH MCHC RDW Plt Count MPV Neut % (Auto) Lymph % (Auto) [place] % (Auto) Eos % (Auto) Baso % (Auto) Neut # (Auto) Lymph # (Auto) [place] # (Auto) Eos # (Auto) Baso # (Auto) Nucleated RBC % (auto) Nucleated RBCs # Specimen Type Sample Site ABG pH ABG pCO2 ABG pO2 ABG HCO3 ABG Base Excess Chato Test Hematocrit Hgb O2 Saturation Carboxyhemoglobin Methemoglobin Total Hemoglobin O2 Delivery Device FiO2 Contact Lens Lathe Operator ID Sodium Potassium Chloride Carbon Dioxide Anion Gap BUN Creatinine GFR Calculation Glucose Calculated Osmolality Lactate Calcium Total Bilirubin AST ALT Alkaline Phosphatase Total Protein Albumin Globulin Lipase Urine Color Yellow Urine Appearance Clear Urine pH 6.5 Ur Specific [employer] 1.005 Urine Protein 1+ H Urine Glucose (UA) Trace H Urine Ketones Negative Urine Blood 3+ H Urine Nitrate Negative Urine Bilirubin 1+ H Urine Urobilinogen 4 H Ur Leukocyte Esterase 1+ H Urine RBC 10-15 H Urine WBC 10-15 H Ur Squamous Epith Cells 10-15 H Amorphous Sediment Not Reportable Urine Bacteria 2+ H Influenza Type A Ag Influenza Type B Ag SARS-CoV-2 Ag (Rapid) Micro: Microbiology 03/25/21 09:50 Blood Culture - Preliminary Blood SPECIMEN COLLECTED 03/25/21 09:50 Blood Culture - Preliminary Blood SPECIMEN COLLECTED Cardiac Studies: No Data to Display
--- NOTE | 2021-03-25 16:06 | P.HP_ITS ---
Providers/Chief Complaint Primary Care Provider: Denae Vuong MD Chief Complaint: Cramps, Fever, N/D History of Present Illness Eliza Henry is a 70 year old female who presented to the ER with abdominal pain that has been ongoing for the last 5 days. Patient states that she has a longstanding history of alternating constipation and diarrhea and her last colonoscopy was greater than 10 years ago. She presented to the ER today because she has been having some right lower quadrant abdominal pain which has persisted for 5 days and has got progressively worse. The pain does not radiate, no aggravating or relieving factors. This is associated nausea but she denies any vomiting. She also had some low-grade fevers. Denies any dysuria, hematemesis, hematochezia, melena. Review of Systems General: Reports: 10 or more systems reviewed and unremarkable except in HPI and below Medications/Allergies Home Medications Medication Instructions Recorded Confirmed Last Taken Type aspirin 81 mg tablet,delayed 81 mg PO BEDTIME 02/07/20 03/25/21 03/24/21 History release diphenhydramine HCl 25 mg capsule 25 mg PO PRN cap 02/07/20 03/25/21 Unknown History glipizide 2.5 mg tablet, extended 2.5 mg PO BID 02/07/20 03/25/21 03/24/21 History release 24 hr atenolol 50 mg tablet 50 mg PO QAM 07/31/20 03/25/21 03/24/21 History famotidine 20 mg tablet 20 mg PO QAM 07/31/20 03/25/21 03/24/21 History insulin glargine 100 unit/mL (3 40 unit SUBCUT QAM ml 07/31/20 03/25/21 03/24/21 History mL) subcutaneous pen levetiracetam 500 mg tablet 500 mg PO BID 07/31/20 03/25/21 03/24/21 History ascorbic acid-vitamin E-biotin 1 tab PO TID 03/25/21 03/25/21 03/24/21 History [Hair, Skin, Nails with Biotin] diclofenac sodium 2 - 4 g TOPICAL TID PRN 03/25/21 03/25/21 Unknown History duloxetine 60 mg PO QAM 03/25/21 03/25/21 03/24/21 History gabapentin See Rx Instructions .ROUTE .COMPLEX 03/25/21 03/25/21 03/24/21 History hydrocodone-acetaminophen 1 tab PO Q6H PRN #20 tab 03/25/21 Unknown Rx Allergies Allergy/AdvReac Type Severity Reaction Status Date / Time latex Allergy unk Verified 03/25/21 11:50 meperidine [From Demerol] Allergy unk Verified 03/25/21 11:50 PFSH Acute PFSH: Medical History COPD (chronic obstructive pulmonary disease) Diabetes mellitus History of malignant melanoma Hypertension Seizures Surgical History H/O: hysterectomy History of delivery Status post colonoscopy Status post laparoscopic cholecystectomy Social History Smoking and tobacco status: former smoker Quit status (tobacco): has quit using tobacco Year quit tobacco: 2004 [id number] Second hand smoke exposure: Yes Smoking risk assessment/counseling performed?: Yes Alcohol intake: current Alcohol intake frequency: holidays/special occasions only Desire information about alcohol rehabilitation?: No Counseling given: No Caregiver/support person: Yes Lives independently: Yes Household members: spouse Housing: House Marital status: Current occupational status: retired History of recent travel: No Current gender identity: Female Vitals/I&O/Wt Last Vital Signs Temp 97.8 F 03/25/21 13:45 Pulse 74 03/25/21 13:45 Resp 18 03/25/21 13:45 BP 105/61 03/25/21 13:45 Pulse Ox 96 03/25/21 13:45 Weight last 48 hrs Weight 186 lb Physical Exam Narrative: EXAM NARRATIVE: HEENT: Normocephalic Eye: Sclera /conjunctiva normal Respiratory and chest: Bilateral clear breath sounds on auscultation Cardiovascular: Normal S1 and S2 heart sounds Abdomen: Soft to palpation Neurological: Oriented to place person and time Skin: Intact, no lesions appreciated on gross exam Data : 03/25/21 09:50 03/25/21 09:50 Micro: Microbiology 03/25/21 09:50 Blood Culture - Preliminary Blood SPECIMEN COLLECTED 03/25/21 09:50 Blood Culture - Preliminary Blood SPECIMEN COLLECTED A&P Assessment and plan (1) Acute appendicitis: 70-year-old old female with right lower quadrant pain and nausea for 5 days duration. Patient also has been having some diarrhea thought it is not new. On exam she is tender in the right lower quadrant. WBC is 8.[address] abdomen pelvis showed dilation and inflammation at the base of the appendix concerning for acute appendicitis/mucocele. Discussed the findings with the patient and she would like to proceed with surgery. Plan for laparoscopic possible open appendectomy Procedure, risks, benefits and alternatives have been discussed with the patient who wishes to proceed with surgery. 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
[2021-03-25] MEDS: piperacillin-tazobactam 3.375 GM in sodium chloride 0.9% (plus) 50 ML IV (16:17)
--- NOTE | 2021-03-25 17:22 | P.PCN_ITS ---
PACU note PACU note: VSS, Good respiratory effort, report to [employer] [facility] Post-Anesthesia Exam: awake
--- NOTE | 2021-03-25 17:22 | PM.PACU ---
PACU note PACU note: VSS, Good respiratory effort, report to [employer] Post-Anesthesia Exam: awake
[2021-03-25] MEDS: fentaNYL 50 mcg/mL INJ 2mL IVP (17:34)
--- NOTE | 2021-03-25 17:50 | ANE.PACU2 ---
Inpatient post-anesthesia follow up: Airway intact: Yes Vital signs: Temperature 97.5 F Pulse Rate 84 Respiratory Rate 22 Blood Pressure 125/59 Pulse Oximetry 93 Oxygen Delivery Me thod Simple Mask Oxygen Flow Rate 8 Fraction of Inspir ed Oxygen Hydration adequate: Yes Nausea and vomiting: Yes (Well controlled with meds) Pain level: 2 Mental status: Baseline
[2021-03-25] MEDS: HYDROcodone-acetaminophen 5-325 mg Tablet 1 TAB PO (18:19)
--- NOTE | 2021-03-25 18:47 | PM.OP ---
Operative Report Date of procedure: March 25, 2021 Pre-op Diagnosis: Appendicitis/mucocele Post-op Diagnosis: Distended appendix with thickened mesoappendix Procedure Done: Laparoscopic appendectomy Specimens removed/disposition: Appendix Surgeon: Todd Frost Anesthesia: General Condition: stable Disposition: PACU Procedure: The patient was taken to the Operating Room and intubated under general anesthesia after antibiotic had been administered. Using a 15 blade, a 1-cm infraumbilical incision was made and using open Louise technique, the peritoneal cavity was entered. A 12mm port with balloon was placed and 14 mm of pneumoperitoneum was created and 10-mm 30 degree scope was introduced. Two separate 5mm ports were placed in the left and right lower quadrant under direct visualization. The appendix was noted in the right lower quadrant and appeared distended with thickened mesoappendix. Using [place] forceps, an opening was made in the mesoappendix near the base of the appendix. An Endo CHARLEE stapler 45mm long 3.5mm blue load was introduced to divide the appendix at it's base. Using electrocautery, the mesoappendix including the appendicular artery was divided. There was no bleeding noted and the staple line appeared intact. EndoCatch bag was introduced to remove the appendix. All three ports were removed under direct visualization and there was no bleeding noted on the port sites. 10cc of 0.5% Marcaine was infiltrated at the port sites.The fascia at the umbilical port was closed using figure of eight 0-Vicryl sutures and subcutaneous tissue was approximated using 3-0 Vicryl and skin at all 3 port sites was closed using 4-0 Monocryl and Dermabond.
--- NOTE | 2021-03-25 19:25 | SUR.PREOP ---
ordered IS for patient to go home with. Instructed patient on use. oxygen level remained above 90 percent on room air prior to discharge.
== END 2021-03-25 19:24 | disposition home or self-care (01) ==
LOC: ER 12:23 → OPS 13:01
PROVIDERS: Emergency Provider Family Medicine; PCP Family Medicine; Visit Provider Surgery
PROC: 0DTJ4ZZ Resection of Appendix, Percutaneous Endoscopic Approach (ICD-10-PCS; CPT 44970; principal; 2021-03-25 15:00)
DX: K35.80 Unspecified acute appendicitis (principal); Z79.82 Long term (current) use of aspirin; J44.9 Chronic obstructive pulmonary disease, unspecified; E11.9 Type 2 diabetes mellitus without complications; I10 Essential (primary) hypertension; Z87.891 Personal history of nicotine dependence; G47.30 Sleep apnea, unspecified
CPT/HCPCS: 44970; 36600; 71045; 74018; 74177; 80053; 81001; 82805; 83605; 83690; 85025; 87040; 87086; 87426; 87804; 88304; 93005; 96365; 96375; J1170; J2370; J2405; J2543; J2704; J2710; J3010; J3490; J7030; Q9967

== ENCOUNTER → 2021-05-08 14:05 | Outpatient (BNVA) | payer MEDICARE, SELFPAY | PROVIDERS: PCP Family Medicine; Visit Provider Surgery | DX: Z20.822 Contact with and (suspected) exposure to COVID-19 (principal) | CPT/HCPCS: 87635 ==

== ENCOUNTER 2021-05-15 08:54 | Day surgery (SDC) | payer MEDICARE, SELFPAY ==
[2021-05-09 14:53] VITALS: BMI 29.0
--- NOTE | 2021-05-15 09:18 | ANES.PREANE2 ---
Pre-Anesthetic Assessment Pre-Anesthetic Assessment: Height/Weight: Height 1.68 m Weight 81.647 kg Preop Diagnosis: screening colonoscopy Proposed Procedure: Operation Date: 05/15/21 10:30 Proposed Procedures p Colonoscopy 42046 r19.7(Bilateral) - Todd Frost MD Was Beta Lucy taken within 24 hours: Yes Was Clonidine taken within 24 hours: N/A Social: Social History: No alcohol and No tobacco (h/o smoking) Exam: Pre-Anes Outpt Exam: alert, oriented x 3, clear to auscultation bilaterally and regular rate & rhythm Airway: Submandibular: WNL Cervical ROM: WNL MP: 2 Dentition: False Pulmonary: Pulmonary: COPD and Sleep apnea CV/HEM: CV/HEM: HTN Metabolic: Metabolic: DM Anesthetic Plan: ASA status: 3 Anesthesia: MAC Risk of > 500 ml blood loss (7ml/kg in children): No PFSH Anesthesia PFSH: Medical History (Updated 04/04/21 @ 12:37 by Todd Frost MD) Arnold-Chiari malformation COPD (chronic obstructive pulmonary disease) Dandy Walker malformation Diabetes mellitus History of malignant melanoma Hypertension Seizures Surgical History (Updated 04/04/21 @ 12:38 by Todd Frost MD) H/O esophagogastroduodenoscopy H/O: hysterectomy History of delivery S/P laparoscopic appendectomy Status post colonoscopy Status post laparoscopic cholecystectomy Social History Smoking and tobacco status: never smoked Quit status (tobacco): has quit using tobacco Year quit tobacco: 2004 [id number] Second hand smoke exposure: Yes Smoking risk assessment/counseling performed?: Yes Alcohol intake: current Alcohol intake frequency: holidays/special occasions only Desire information about alcohol rehabilitation?: No Counseling given: No Caregiver/support person: Yes Lives independently: Yes Household members: spouse Housing: House Marital status: Current occupational status: retired History of recent travel: No Current gender identity: Female Data Anesthesia Cardiac Studies: No Data to Display
[2021-05-15 09:54] VITALS: BP 120/57; PULSE 78; RESP 18; TEMP 36.7; O2SAT 98
--- NOTE | 2021-05-15 10:00 | P.HP_ITS ---
Same Day Surgery H&P Indication for Procedure/HPI DATE OF PROCEDURE: May 15, 2021 CHIEF COMPLAINT/INDICATIONFOR SURGICAL PROCEDURE: constipation, colonoscopy PREOP DIAGNOSIS: screening colonoscopy PLANNED PROCEDRUE: Operation Date: 05/15/21 10:30 Proposed Procedures p Colonoscopy 98211 r19.7(Bilateral) - Todd Frost MD Medications/Allergies* Home Medications Medication Instructions Recorded Confirmed Type aspirin 81 mg tablet,delayed 81 mg PO BEDTIME 02/07/20 05/15/21 History release diphenhydramine HCl 25 mg capsule 25 mg PO PRN cap 02/07/20 05/09/21 History glipizide 2.5 mg tablet, extended 2.5 mg PO BID 02/07/20 05/09/21 History release 24 hr atenolol 50 mg tablet 50 mg PO QAM 07/31/20 05/09/21 History famotidine 20 mg tablet 20 mg PO QAM 07/31/20 05/09/21 History insulin glargine 100 unit/mL (3 40 unit SUBCUT QAM ml 07/31/20 05/09/21 History mL) subcutaneous pen levetiracetam 500 mg tablet 500 mg PO BID 07/31/20 05/09/21 History Hair, Skin, Nails with Biotin 1 tab PO TID 03/25/21 05/09/21 History diclofenac sodium 2 - 4 g TOPICAL TID PRN 03/25/21 05/09/21 History duloxetine 60 mg PO QAM 03/25/21 05/09/21 History gabapentin See Rx Instructions .ROUTE .COMPLEX 03/25/21 05/09/21 History Allergies/Adverse Reactions Allergy/AdvReac Type Severity Reaction Status Date / Time latex Allergy unk Verified 04/04/21 09:39 meperidine [From Demerol] Allergy unk Verified 04/04/21 09:39 Pertinent History/Comorbid Conditions* Medical History (Updated 04/04/21 @ 12:37 by Todd Frost MD) Arnold-Chiari malformation COPD (chronic obstructive pulmonary disease) Dandy Walker malformation Diabetes mellitus History of malignant melanoma Hypertension Seizures Surgical History (Updated 04/04/21 @ 12:38 by Todd Frost MD) H/O esophagogastroduodenoscopy H/O: hysterectomy History of delivery S/P laparoscopic appendectomy Status post colonoscopy Status post laparoscopic cholecystectomy Social History Smoking and tobacco status: never smoked Quit status (tobacco): has quit using tobacco Year quit tobacco: 2004 [id number] Second hand smoke exposure: Yes Smoking risk assessment/counseling performed?: Yes Alcohol intake: current Alcohol intake frequency: holidays/special occasions only Desire information about alcohol rehabilitation?: No Counseling given: No Caregiver/support person: Yes Lives independently: Yes Household members: spouse Housing: House Marital status: Current occupational status: retired History of recent travel: No Current gender identity: Female Pertinent Exam Findings alert, oriented x 3 and regular rate & rhythm Recommendations Surgery/Procedure today Coding Level of Care Code 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
[2021-05-15] MEDS: sodium chloride 0.9% 1,000 ML 30 ML IV (10:10)
[2021-05-15 10:15] LABS: Glucose Point of Care 171 mg/dL (70-110)
[2021-05-15 10:44] VITALS: BP 105/62; PULSE 69; RESP 16; TEMP 36.1; O2SAT 92
[2021-05-15 10:59] VITALS: BP 116/68; PULSE 74; RESP 16; O2SAT 95
--- NOTE | 2021-05-15 16:19 | ANE.PACU2 ---
Inpatient post-anesthesia follow up: Airway intact: Yes Vital signs: Temperature 97 F Pulse Rate 74 Respiratory Rate 16 Blood Pressure 116/68 Pulse Oximetry 95 Oxygen Delivery Me thod Room Air Oxygen Flow Rate 7 Fraction of Inspir ed Oxygen Hydration adequate: Yes Nausea and vomiting: No Pain level: 1 Mental status: Baseline
== END 2021-05-15 11:25 | disposition home or self-care (01) ==
PROVIDERS: PCP Family Medicine; Visit Provider Surgery
PROC: 0DJD8ZZ Inspection of Lower Intestinal Tract, Via Natural or Artificial Opening Endoscopic (ICD-10-PCS; CPT 45378; principal; 2021-05-15 10:30)
DX: K59.00 Constipation, unspecified (principal); K64.8 Other hemorrhoids; J44.9 Chronic obstructive pulmonary disease, unspecified; Z79.82 Long term (current) use of aspirin; E11.9 Type 2 diabetes mellitus without complications; I10 Essential (primary) hypertension; Z87.891 Personal history of nicotine dependence; G47.30 Sleep apnea, unspecified
CPT/HCPCS: 36416; 45378; 82962; 96360; G0121; J2704; J7030

== ENCOUNTER → 2021-11-03 15:44 | Outpatient (BNVA) | payer MEDICARE, SELFPAY | PROVIDERS: PCP Family Medicine; Referring Provider Physician Assistant; Visit Provider Specialist | DX: M17.0 Bilateral primary osteoarthritis of knee (principal); M25.561 Pain in right knee | CPT/HCPCS: 73560; 73565 ==

== ENCOUNTER 2022-01-14 14:19 | Outpatient (CLI) | payer MEDICARE, SELFPAY ==
--- NOTE | 2022-01-14 14:40 | XR_ITS ---
WS: [id number] DEXA (DUAL ENERGY X-RAY ABSORPTIOMETRY) Bone mineral density was performed using a [employer] machine. HISTORY: POST MENOPAUSAL COMPARISON: 12/01/2017 Lumbar spine BMD (L1-L4): 1.151 g/cm2 T score: -0.2 Z score: 0.9 Total hip BMD: Left: 0.751 g/cm2. T score: -2.0 Z score: -0.9 Right: 0.732 g/cm2. T score: -2.2 Z score: -1.0 10 year probability of a major osteoporotic fracture is 15%. Compared to the prior study from 12/01/2017. Lumbar spine bone mineral density has increased by 4.2%. Bilateral hips bone mineral density has decreased by 0.8%. XR/XR DEXA axial skeleton* [id number] IMPRESSION: OSTEOPENIA based upon the WHO classification for females. No significant decrease in bone mineral density. The lumbar spine bone mineral density has increased significantly.
--- NOTE | 2022-01-14 14:40 | MM_ITS ---
WS: [id number] BILATERAL 3D TOMOSYNTHESIS DIGITAL SCREENING MAMMOGRAPHY WITH CAD CLINICAL INFORMATION: SCREENING HISTORY: Screening mammogram. COMPARISON: TECHNIQUE: Bilateral CC and MLO views. FINDINGS: Scattered fibroglandular densities bilaterally. Punctate and lucent centered calcifications. Ovoid de nsity subareolar LEFT breast appears more prominent compared to previous measuring 6 mm. Recommend LE FT breast diagnostic mammography and ultrasound for further evaluation. RIGHT breast is unremarkable and unchanged. MM/[place] [id number] IMPRESSION: BI-RADS: 0-Incomplete: Need additional imaging evaluation FOLLOW UP: Need Additional Imaging Recommend LEFT breast diagnostic mammography and ultrasound for further evaluat ion.
== END 2022-01-14 14:20 | disposition home or self-care (01) ==
LOC: RAD 14:24
PROVIDERS: PCP Family Medicine; Visit Provider Physician Assistant
DX: Z12.31 Encounter for screening mammogram for malignant neoplasm of breast (principal); Z13.820 Encounter for screening for osteoporosis; Z78.0 Asymptomatic menopausal state
CPT/HCPCS: 77063; 77067; 77080

== ENCOUNTER 2022-02-19 12:24 | Outpatient (CLI) | payer MEDICARE, SELFPAY ==
--- NOTE | 2022-02-19 13:01 | MM_ITS ---
WS: [id number] LEFT 3D TOMOSYNTHESIS DIGITAL MAMMOGRAPHY WITH CAD CLINICAL INFORMATION: ABNORMAL MAMMO COMPARISON: January 14, 2022 TECHNIQUE: 4 views of the left breast were obtained. FINDINGS: Scattered fibroglandular densities of the left breast. Subareolar density LEFT breast stable compared to previous measuring 6 mm. Ultrasound LEFT breast is pending. Incidental punctate calcifications. ULTRASOUND BREAST LEFT TECHNIQUE: Ultrasound left breast focused area of concern. CLINICAL INFORMATION: ABNORMAL MAMMO COMPARISON: None. FINDINGS: Ultrasound LEFT breast at the 12:00 position 1 cm from the nipple. There is a small irregular hypoech oic lesion taller than wide measuring approximately 4.2 x 5.6 x 3.7 mm. This is indeterminant and re commend further evaluation with ultrasound-guided biopsy. MM/[place] [id number] IMPRESSION: BI-RADS: 4-Suspicious Finding-Biopsy Should Be Considered FOLLOW UP: US Guided Biopsy Recommended RECOMMEND ULTRASOUND-GUIDED BIOPSY LEFT BREAST LESION.
== END 2022-02-19 12:25 | disposition home or self-care (01) ==
LOC: RAD 12:28
PROVIDERS: PCP Family Medicine; Visit Provider Physician Assistant
DX: R92.8 Other abnormal and inconclusive findings on diagnostic imaging of breast (principal)
CPT/HCPCS: 76642; 77061

== ENCOUNTER 2022-03-11 06:42 | Outpatient (CLI) | payer MEDICARE, SELFPAY ==
--- NOTE | 2022-03-11 | US_ITS ---
WS: [id number] ULTRASOUND-GUIDED LEFT BREAST BIOPSY CLINICAL INFORMATION: ABNORMAL MAMMO COMPARISON: None. FINDINGS: The procedure including risks, benefits, and complications were discussed with the patient who agreed to proceed. Using sterile technique patient was prepped and draped in the usual sterile fashion. Aft er 1% lidocaine utilizing real-time ultrasound guidance 5 14-gauge cores were obtained of the LEFT br east lesion at the 12 o'clock position. Subsequently a titanium clip was placed in the biopsy cavity. No immediate complications. Pathology demonstrates A. Breast, left breast mass , biopsy: - Benign breast tissue with fibrocystic changes and stromal sclerosis. - No malignancy identified. US/[place] [id number] IMPRESSION: 1. Uncomplicated ultrasound-guided LEFT breast biopsy. 2. The pathology demonstrates benign breast tissue with fibrocystic changes. N o malignancy. 3. Recommend return to annual screening mammography. BI-RADS: 2-Benign FOLLOW UP: 1 Year Follow-up
== END 2022-03-11 06:43 | disposition home or self-care (01) ==
LOC: RAD 06:44
PROVIDERS: PCP Family Medicine; Visit Provider Physician Assistant
DX: R92.8 Other abnormal and inconclusive findings on diagnostic imaging of breast (principal); N60.12 Diffuse cystic mastopathy of left breast; N63.20 Unspecified lump in the left breast, unspecified quadrant
CPT/HCPCS: 19083; 88305

== ENCOUNTER 2022-09-23 10:46 | Outpatient (CLI) | payer MEDICARE, SELFPAY ==
--- NOTE | 2022-09-23 11:03 | XR_ITS ---
WS: [id number] Thoracic spine, 3 views, 09/23/2022 Clinical Data: OSTEOPOROSIS/THORACIC SPINE PAIN Comparison: None. Findings: No compression fractures are seen. The disc heights are normal. There is minimal osteoarthritis of the mid and lower thoracic vertebral bodies. There is a dextroscol iosis of the thoracic spine. There are right upper quadrant clips from a cholecystectomy. 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
== END 2022-09-23 10:47 | disposition home or self-care (01) ==
PROVIDERS: PCP Nurse Practitioner; Visit Provider Nurse Practitioner
DX: M81.8 Other osteoporosis without current pathological fracture (principal); M54.6 Pain in thoracic spine
CPT/HCPCS: 72072

== ENCOUNTER → 2022-10-01 11:20 | Outpatient (BNVA) | payer MEDICARE, SELFPAY | PROVIDERS: PCP Nurse Practitioner; Visit Provider Specialist | DX: M17.11 Unilateral primary osteoarthritis, right knee (principal); Z71.89 Other specified counseling | CPT/HCPCS: 20610; J7327 ==

== ENCOUNTER 2022-12-09 15:19 | Emergency (ER) | payer MEDICARE, SELFPAY ==
[2022-12-09 15:43] LABS: Glucose Point of Care 240 mg/dL (70-110)
[2022-12-09 15:44] VITALS: BP 172/92; PULSE 90; RESP 21; TEMP 36.9; O2SAT 93; BMI 27.8
--- NOTE | 2022-12-09 15:46 | XR_ITS ---
WS: [id number] EXAMINATION: XR chest 1V portable [id number] REASON FOR EXAM: dyspnea COMPARISON: 03/25/2021 ORDER DATE: 12/09/2022 4:37 PM TECHNIQUE: A single, portable frontal chest x-ray was obtained. X-RAY FINDINGS: The lungs are clear. Pleural spaces are clear. No pleural effusions or pneumothorax. Cardiomediastinal silhouette is normal. No evidence for pulmonary edema. Soft tissue and osseous structures are unremarkable. No tubes or lines are present. XR/XR chest 1V portable [id number] IMPRESSION: Unremarkable frontal portable chest x-ray.
--- NOTE | 2022-12-09 15:46 | CTR_ITS ---
PROCEDURE INFORMATION: Exam: CT Head Without Contrast Exam date and time: 12/09/2022 4:11 PM Age: 72 years old Clinical indication: Stroke-like symptoms; Speech disturbance; Right facial droop; Additional info: Symptoms of acute stroke. Seizure at 8am this am. PT started having RT sided facial droop that has now resolved. PT states she feels like she is in a fog and is having blurred vision TECHNIQUE: Imaging protocol: Computed tomography of the head without contrast. Radiation optimization: All CT scans at this facility use at least one of these dose optimization techniques: automated exposure control; mA and/or kV adjustment per patient size (includes targeted exams where dose is matched to clinical indication); or iterative reconstruction. Other technique: STROKE PROTOCOL was implemented. REPORTING DATA: Count of CT and Cardiac NM exams in prior 12 months: This patient has received 0 known CTs and 0 known cardiac nuclear medicine studies in the 12 months prior to the current study. COMPARISON: CT head wo con* [id number] 07/08/2020 12:08 PM RADIATION DOSE METRICS: Total DLP (mGy-cm): 1149.58 FINDINGS: Brain: No evidence of intracranial hemorrhage. No evidence of acute cortical infarct at this time. 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 Cortical sulci are unremarkable. Cerebral ventricles: The ventricular system is unchanged and not significantly dilated. Paranasal sinuses: Visualized sinuses are unremarkable. No fluid levels. Mastoid air cells: Visualized mastoid air cells are well aerated. Bones/joints: Diffuse cortical thickening of the frontal bones unchanged consistent with hyperostosis frontalis interna. No acute fracture. Soft tissues: Unremarkable. CT/CT head thrombolytic [id number] IMPRESSION: 1. No acute intracranial abnormalities. 2. 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 ASSESSMENT: ASPECTS ([facility] Stroke Program Early CT Score) is 10.
--- NOTE | 2022-12-09 15:56 | ED_ITS ---
HPI - Neuro Symptoms/Deficit General: Chief Complaint: Neuro Symptoms/Deficit Stated Complaint: stroke like symptoms Time Seen by Provider: 12/09/22 15:28 Source: patient Mode of arrival: ambulatory History of Present Illness: 72-year-old female brought in by family. Report of a seizure this morning after which there was report of strokelike symptoms with facial drooping and some slurring of the speech. All of this began some time around 830 this morning with the seizure and then they noticed her symptoms at 1230. And is completely resolved by now patient is awake alert. Location: speech and right face Relieving factors: none Exacerbating factors: none Associated symptoms: Deny chest pain, cough, diaphoresis, fevers/chills, headache(s), anorexia, malaise, nausea, seizures, short of breath, syncope, t ingling, vertigo, vomiting or weakness Review of Systems Const: Denies: fever(s), chills, malaise or diaphoresis ENMT: Denies: throat pain, ear or mastoid pain, nasal discharge or nasal congestion Card: Denies: chest pain or syncope Resp: Denies: dyspnea, productive cough or non-productive cough GI: Denies: abdominal pain, nausea or vomiting : Denies: flank pain, difficulty voiding, dysuria, urinary frequency or urinary urgency Musc: Denies: neck pain or back pain Skin/Breast: Denies: rash or pruritus Neuro: Denies: headache(s) or vertigo PFS ED PFSH: Medical History Arnold-Chiari malformation COPD (chronic obstructive pulmonary disease) Dandy Walker malformation Diabetes mellitus History of malignant melanoma Hypertension Seizures Surgical History H/O esophagogastroduodenoscopy H/O: hysterectomy History of delivery S/P laparoscopic appendectomy Status post colonoscopy (05/15/21) normal Status post laparoscopic cholecystectomy Social History Smoking and tobacco status: former smoker Quit status (tobacco): has quit using tobacco Year quit tobacco: 2004 [id number] Second hand smoke exposure: Yes Smoking risk assessment/counseling performed?: Yes Alcohol intake: current Alcohol intake frequency: holidays/special occasions only Desire information about alcohol rehabilitation?: No Counseling given: No Caregiver/support person: Yes Lives independently: Yes Household members: spouse Housing: House Marital status: Current occupational status: retired Current gender identity: Female NIH stroke score NIHSS: Level Of Consciousness - 1a: 0 Level Of Consciousness Questions - 1b : Both Correct Level Of Consciousness Commands - 1c: Both Correct Best Gaze - 2: Normal Visual Nazario - 3: No Visual Loss Facial Palsy - 4: Normal Motor Arm Right - 5: No Drift Motor Arm Left - 5: No Drift Motor Leg Right - 6: No Drift Motor Leg Left - 6: No Drift Limb Ataxia - 7: Absent Sensory - 8: Normal Best Language - 9: No Aphasia Dysarthia - 10: Normal Extinction And Inattention - 11: 0 Score: Total Score: 0 Physical Exam Const: GENERAL APPEARANCE: cooperative and comfortable ORIENTATION/CONSCIOUSNESS: Yes awake, Yes oriented to person, Yes oriented to place and Yes oriented to time HENMT: COMMON NORMALS: normocephalic, atraumatic and hearing grossly normal bilaterally HEAD & SCALP: normocephalic and atraumatic Resp: COMMON NORMALS: normal respiratory effort, No retractions, No use of accessory muscles and clear to auscultation bilaterally AUSCULTATION: clear to auscultation bilaterally Cardio: COMMON NORMALS: regular rate, regular rhythm and No murmurs present (Cardio) RATE: regular rate RHYTHM: regular rhythm GI: COMMON NORMALS: Soft to palpation and No hepatosplenomegaly present AUSCULTATION: Yes normoactive bowel sounds PALPATION: Yes Soft to palpation, No Tenderness to palpation present (GI), No Guarding due to palpation present (GI) and Yes No hepatosplenomegaly present Extremity: COMMON NORMALS: normal to inspection, capillary refill normal, no clubbing, cyanosis or edema, no calf tenderness and no pedal edema Neuro: SENSORIUM/ORIENTATION: Yes oriented to person, Yes oriented to place and Yes oriented to time Skin: COMMON NORMALS: no rashes or lesions noted GENERAL SKIN EXAM: no rashes or lesions noted Course Vital Signs: Vital signs: Vital Signs Temperature 98.4 F 12/09/22 15:44 Pulse Rate 90 12/09/22 15:44 Respiratory Rate 21 H 12/09/22 15:44 Blood Pressure 172/92 12/09/22 15:44 Pulse Oximetry 93 12/09/22 15:44 Oxygen Delivery Me thod 12/09/22 15:44 MDM - Neuro Symptoms/Deficit Medical Decision Making CT head negative she does not really have any significant findings on NIH exam no focal deficits. We will start her on clopidogrel continue aspirin also add atorvastatin 40 daily. She did have seizure earlier today is possible that some of her symptoms may just be postictal. We will increase her Keppra to 750 twice daily and have her follow-up with her primary care doctor return if she has further problems. Medical Records I reviewed the patient's medical records. Lab Data I reviewed the patient's lab results. 12/09/22 15:41 12/09/22 15:41 Radiology Impressions Chest X-Ray 12/09/22 15:46 IMPRESSION: Unremarkable frontal portable chest x-ray. Head CT 12/09/22 15:46 IMPRESSION: 1. No acute intracranial abnormalities. 2. 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 ASSESSMENT: ASPECTS ([place] Stroke Program Early CT Score) is 10. Laboratory Results WBC 9.9 10^3/uL (4.0-10.0) 12/09/22 15:41 RBC 4.62 10^6/uL (4.1-5.3) 12/09/22 15:41 Hgb 13.9 g/dL (11.5-15.3) 12/09/22 15:41 Hct 42.9 % (37.0-47.0) 12/09/22 15:41 MCV 92.9 fl (81-99) 12/09/22 15:41 MCH 30.1 pg (28.0-34.0) 12/09/22 15:41 MCHC 32.4 g/dL (30.0-36.0) 12/09/22 15:41 RDW 11.9 % (12.1-15.1) L 12/09/22 15:41 Plt Count 221 10^3/cmm (130-400) 12/09/22 15:41 MPV 11.6 fL (7.4-10.4) H 12/09/22 15:41 Neut % (Auto) 57.4 % 12/09/22 15:41 Lymph % (Auto) 31.4 % 12/09/22 15:41 [place] % (Auto) 7.3 % 12/09/22 15:41 Eos % (Auto) 2.7 % 12/09/22 15:41 Baso % (Auto) 0.8 % 12/09/22 15:41 Neut # (Auto) 5.69 10^3/uL (1.8-7.7) 12/09/22 15:41 Lymph # (Auto) 3.1 10^3/uL (0.8-4.8) 12/09/22 15:41 [place] # (Auto) 0.7 10^3/uL (0.2-0.9) 12/09/22 15:41 Eos # (Auto) 0.3 10^3/uL (0.0-0.8) 12/09/22 15:41 Baso # (Auto) 0.1 10^3/uL (0.0-0.1) 12/09/22 15:41 Nucleated RBC % (auto) 0 % 12/09/22 15:41 Nucleated RBCs # 0.0 /100WBC 12/09/22 15:41 PT 12.50 SECONDS (12.1-14.9) 12/09/22 15:41 INR 0.91 (0.8-1.2) 12/09/22 15:41 APTT 26.2 SECONDS (23.9-36.7) 12/09/22 15:41 Sodium 140 mmol/L (136-145) 12/09/22 15:41 Potassium 4.2 mmol/L (3.5-5.1) 12/09/22 15:41 Chloride 101 mmol/L (98-107) 12/09/22 15:41 Carbon Dioxide 29 mmol/L (22-29) 12/09/22 15:41 Anion Gap 14.2 (5-19) 12/09/22 15:41 BUN 17 mg/dL (8-23) 12/09/22 15:41 Creatinine 0.9 mg/dL (0.5-0.9) 12/09/22 15:41 GFR Calculation Not Reportable 12/09/22 15:41 Glucose 216 mg/dL (65-115) H 12/09/22 15:41 POC Glucose 240 mg/dL (70-110) H 12/09/22 15:39 Calculated Osmolality 298 mOsm/kg (285-295) H 12/09/22 15:41 Calcium 9.5 mg/dL (8.5-10.5) 12/09/22 15:41 Total Bilirubin 0.3 mg/dL (0.15-1.2) 12/09/22 15:41 AST 20 U/L (0-32) 12/09/22 15:41 ALT 23 U/L (0-33) 12/09/22 15:41 Alkaline Phosphatase 93 U/L (35-105) 12/09/22 15:41 Total Protein 7.3 g/dL (6.6-8.7) 12/09/22 15:41 Albumin 4.4 g/dL (3.5-5.2) 12/09/22 15:41 Globulin 2.9 g/dL (1.3-4.6) 12/09/22 15:41 Discharge Plan Discharge Patient Disposition: Home Clinical Impression: TIA (transient ischemic attack), Seizures Condition: Stable Prescriptions: New Keppra 750 mg tablet 750 mg PO BID Qty: 30 0RF clopidogrel 75 mg tablet 75 mg PO DAILY Qty: 60 0RF aspirin 81 mg tablet,delayed release (DR/EC) 81 mg PO DAILY Qty: 30 0RF atorvastatin 40 mg tablet 40 mg PO DAILY Qty: 30 0RF Discontinued aspirin [Sheree Low Dose Aspirin] 81 mg tablet,delayed release (DR/EC) 81 mg PO BEDTIME levetiracetam 500 mg tablet 500 mg PO BID No Action diphenhydramine HCl [Benadryl] 25 mg capsule 25 mg PO DAILY PRN (Reason: Itching) famotidine 20 mg tablet 20 mg PO QAM atenolol 50 mg tablet 50 mg PO QAM diclofenac sodium 1 % gel 2 - 4 g TOPICAL TID PRN (Reason: Pain) Hair, Skin, Nails with Biotin 7.5-7.5-1,250 mg-unit-mcg Tablet,Chewable 1 tab PO TID gabapentin 600 mg Tablet See Rx Instructions .ROUTE .COMPLEX Rx Instructions: 600mg po qam,600mg po @noon and 1200mg po bedtime duloxetine 60 mg capsule,delayed release(DR/EC) 60 mg PO QAM losartan 50 mg tablet 50 mg PO QAM alendronate 70 mg tablet 70 mg PO Q7D Rx Instructions: on wed cyclobenzaprine 5 mg tablet 5 mg PO BEDTIME PRN (Reason: Muscle Spasm) Culturelle 15 billion cell Capsule, Sprinkle 1 cap PO DAILY Ozempic 0.25 mg or 0.5 mg(2 mg/1.5 mL) pen injector 0.5 mg SUBCUT Q7D Rx Instructions: on wed Gemtesa 75 mg tablet 75 mg PO QAM Focus Factor 1 tab PO BID Discharge Orders: Discharge ED (Routine); Ordered 12/09/22 Ordered By: Fransico Vega Referrals: Margi Rocha FNP [Primary Care Provider] - Patient Instructions: Opioid Safety, Pain Management Activity Restrictions/Additional Instructions: You are seen today for TIA symptoms (transient ischemic attack). As well as anuradha ruleas. Recommend you increase your Keppra to 750 mg 1 p.o. twice daily. Add clopidogrel 75 daily and atorvastatin 40 daily for stroke prevention, continue aspirin 81 mg daily. insurance office manager will make arrangements for outpatient testing for your risk of stroke including echocardiogram carotid duplex and MRI of the head. Follow-up with your primary care doctor. Coding Level of Care Code ED Descriptive Catalog Librarian for Gio Bell
--- NOTE | 2022-12-09 16:01 | ECG_ITS ---
[facility] Test Date: 2022-12-09 Pat Name: Eliza Henry Department: Room: Gender: Female District Engineer: : 1950 Requested By: Fransico Oviedo Order Number: [id number] Familia MD: Yuval Kearns M.D. Measurements Intervals [place] Rate: 87 P: 55 CO: 155 QRS: 17 QRSD: 83 T: 13 QT: 369 QTc: 446 Interpretive Statements SINUS RHYTHM LOW QRS VOLTAGE IN PRECORDIAL LEADS [QRS DEFLECTION < 1.0 mV IN CHEST LEADS] Compared to ECG 03/25/2021 09:25:48 Low QRS voltage now present Myocardial infarct finding no longer present Electronically Signed On 12-09-2022 16:31:25 CDT by Yuval Kearns M.D. [id number]
[2022-12-09 16:04] LABS: Basophils # 0.1 10^3/uL (0.0-0.1); Basophils % 0.8 %; Eosinophils # 0.3 10^3/uL (0.0-0.8); Eosinophils % 2.7 %; Hematocrit 42.9 % (37.0-47.0); Hemoglobin 13.9 g/dL (11.5-15.3); Lymphocytes # 3.1 10^3/uL (0.8-4.8); Lymphocytes % 31.4 %; Mean Corpuscular HGB Conc 32.4 g/dL (30.0-36.0); Mean Corpuscular Hemoglobin 30.1 pg (28.0-34.0); Mean Corpuscular Volume 92.9 fl (81-99); Mean Platelet Volume 11.6 fL (7.4-10.4); Monocytes # 0.7 10^3/uL (0.2-0.9); Monocytes % 7.3 %; Neutrophils # 5.69 10^3/uL (1.8-7.7); Neutrophils % 57.4 %; Nucleated Red Blood Cells % 0 %; Platelet Count 221 10^3/cmm (130-400); Red Blood Count 4.62 10^6/uL (4.1-5.3); Red Cell Distribution Width 11.9 % (12.1-15.1); White Blood Count 9.9 10^3/uL (4.0-10.0)
[2022-12-09 16:18] LABS: INR 0.91 (0.8-1.2); Partial Thromboplastin Time 26.2 SECONDS (23.9-36.7)
[2022-12-09 16:24] LABS: Alanine Aminotransferase 23 U/L (0-33); Albumin Level 4.4 g/dL (3.5-5.2); Alkaline Phosphatase 93 U/L (35-105); Aspartate Amino Transferase 20 U/L (0-32); Blood Urea Nitrogen 17 mg/dL (8-23); Calcium 9.5 mg/dL (8.5-10.5); Carbon Dioxide 29 mmol/L (22-29); Chloride 101 mmol/L (98-107); Globulin 2.9 g/dL (1.3-4.6); Glucose 216 mg/dL (65-115); Osmolality Calculated 298 mOsm/kg (285-295); Sodium 140 mmol/L (136-145); Total Bilirubin 0.3 mg/dL (0.15-1.2); Total Protein 7.3 g/dL (6.6-8.7)
[2022-12-09 16:36] LABS: Anion Gap 14.2 (5-19); Potassium 4.2 mmol/L (3.5-5.1)
--- NOTE | 2022-12-09 16:52 | PC.PHAR ---
pt states she takes care of her own medications-pt states she dced the lipitor 10mg daily last filled 07/31/22 90d/s-pt states was out of levetiracetam 500mg bid for 2 weeks states med was filled at different pharmacy-pt states restarted taking the week before last -
[2022-12-09 17:26] LABS: Add Urine Microscopic? NO; Charge for UA Resulting for Rev
[2022-12-09 17:38] LABS: Bilirubin Urine Neg (Negative); Blood Urine Neg (Negative); Glucose Urine UA 2+ (Normal); Ketones Urine Negative (Negative); Leukocyte Esterase Urine Negative (Negative); Nitrate Urine Negative (Negative); Protein Urine Neg (Negative); Urine Appearance Clear (CLEAR); Urine Color Light yellow (Yellow); Urobilinogen Urine Neg (Negative); pH Urine 5 (5-7)
[2022-12-09 17:42] LABS: Amphetamines Screen Urine Negative (Negative); Barbiturates Screen Urine Negative (Negative); Benzodiazepines Screen Urine Negative (Negative); Cocaine Screen Urine Negative (Negative); Opiate Screen Urine Negative (Negative); PCP Screen Urine Negative (Negative); THC Screen Urine Negative (Negative)
--- NOTE | 2022-12-10 10:21 | DCPLANNER ---
Addendum entered by Mala Garcia 01/21/23 09:37: Patient has an outpatient MRI scheduled for Wednesday, January 27, 2023 at 2:30 Patient has an outpatient echo scheduled for Wednesday, January 27, 2023 at 9:30 Patient has an outpatient carotid scheduled for Wednesday, January 27, 2023 at 10:15. Original Note: manager urgent care had message to schedule an outpatient MRI head, echo cardiogram and carotid duplex for patient. manager urgent care faxed signed order to centralized scheduling, who will call patient with appointment information.
== END 2022-12-09 17:25 | disposition home or self-care (01) ==
PROVIDERS: Emergency Provider Family Medicine; PCP Nurse Practitioner
DX: R56.9 Unspecified convulsions (principal); G45.9 Transient cerebral ischemic attack, unspecified; Z87.891 Personal history of nicotine dependence; J44.9 Chronic obstructive pulmonary disease, unspecified; E11.9 Type 2 diabetes mellitus without complications; I10 Essential (primary) hypertension
CPT/HCPCS: 36416; 70450; 71045; 80053; 80306; 81003; 82962; 85025; 85610; 85730; 93005; 99285

== ENCOUNTER 2023-01-27 08:58 | Outpatient (CLI) | payer MEDICARE, SELFPAY ==
--- NOTE | 2023-01-27 09:18 | USCV_ITS ---
Carl Eliza Age: 72 Gender: F : 1950 Exam Date: 01/27/2023 09:53 Ordering Phys: Fransico Vega DO Technologist: KAMARI [place] [facility] [place]: TIA BP: 132 / 78 HR: 76 Rhythm: Sinus Technical Quality: Good MEASUREMENTS (Male / Female) Normal Values 2D ECHO LVOT Diameter 2.0 cm LV Ejection Fraction MOD 2C 55.4 % LV Ejection Fraction 2C AL 58.0 % LA Diameter 2.9 cm LA Width 3.3 cm LA Height 4.1 cm RA Width 2.4 cm RA Height 3.8 cm Aorta at Sinotubular Diameter 1.9 cm IVC Diameter 1.3 cm M-MODE Aortic Annulus Diameter 2.8 cm LA Ao Ratio MM 1.0 MV E Point Septal Separation 0.3 cm DOPPLER AV Peak Velocity 132.0 cm/s LVOT Peak Velocity 80.0 cm/s AV Area Cont Eq vti 2.3 cm squared AV Area Cont Eq pk 2.0 cm squared MV Peak Velocity 88.0 cm/s MV Area PHT 3.6 cm squared Mitral E to A Ratio 0.7 MV E' Velocity 34.5 cm/s Mitral E to MV E' Ratio 9.4 Mitral E to LV E' Lateral Ratio 10.3 Mitral E to LV E' Septal Ratio 8.6 TR Peak Velocity 210.4 cm/s TR Peak Gradient 17.7 mmHg TR Mean Velocity 187.5 cm/s TR Mean Gradient 14.0 mmHg TR Velocity Time Integral 61.7 cm TV Peak E Velocity 44.0 cm/s Right Atrial Pressure 3.0 mmHg Pulmonary Artery Systolic Pressu 20.7 mmHg PV Peak Velocity 77.0 cm/s RV Acceleration Time 0.1 s RV Ejection Time 0.3 s RV AcT/ET 0.3 FINDINGS Left Ventricle Normal left ventricular size, systolic function and wall thickness, with no regional wall motion abnormalities. Grade I/IV diastolic dysfunction (abnormal relaxation filling pattern), normal to mildly elevated filling pressures. Left ventricular ejection fraction is estimated at 55-60 %. Right Ventricle Normal right ventricular size and systolic function. Normal right ventricular systolic pressure. Right Atrium Mildly increased right atrial size. Left Atrium Moderately increased left atrial size. Mitral Valve Structurally normal mitral valve. Moderate-severe mitral valve regurgitation. Two jets. Aortic Valve Structurally normal trileaflet aortic valve. No aortic valve stenosis. Mild aortic valve regurgitation. Tricuspid Valve Structurally normal tricuspid valve. Trace tricuspid valve regurgitation. Pulmonic Valve Pulmonic valve not well visualized. Pericardium Normal pericardium without effusion. Aorta Normal ascending aorta dimension. IVC The inferior vena cava appears normal. CONCLUSIONS Normal left ventricular size, systolic function and wall thickness, with no regional wall motion abnormalities. Grade I/IV diastolic dysfunction (abnormal relaxation filling pattern), normal to mildly elevated filling pressures. Left ventricular ejection fraction is estimated at 55-60 %. Mildly increased right atrial size. Moderately increased left atrial size. Structurally normal mitral valve. Moderate-severe mitral valve regurgitation. Two jets. Structurally normal trileaflet aortic valve. No aortic valve stenosis. Mild aortic valve regurgitation. Since the last study dated 06/12/2019, the mitral regurgitant lesion is probably worse. Aortic insufficiency has appeared. Dr. Kris Keller MD (Electronically Signed) Final Date: 27 Jan 2023 16:15 S
--- NOTE | 2023-01-27 09:18 | USCV_ITS ---
Eliza Henry Age: 72 Gender: F : 1950 Exam Date: 01/27/2023 09:39 Ordering Phys: Fransico Vega DO Technologist: KAMARI Exam Location: [facility] – [place] Indication: TIA Risk Factors: Previous Vascular Surgery: Right Brachial BP: / Left Brachial BP: / Right Left Velocity (cm/s) Spectral Plaque Velocity (cm/s) Spectral Plaque Syst/Diast Broadening Syst/Diast Broadening 54.60/ 11.50 Prox CCA 60.80 / 11.20 63.10/ 16.40 Mid CCA 60.50 / 14.50 67.00/ 17.10 Distal CCA 50.00 / 17.10 37.90/ 12.30 Prox ICA 36.70 / 14.50 68.50/ 27.10 Mid ICA 52.30 / 24.40 59.10/ 22.30 Distal ICA 44.70 / 21.50 97.40 ECA 34.30 1.02 ICA/CCA 0.86 Antegrade Vertebral Antegrade 26.30/ 9.90 cm/s 28.90/ 9.90 cm/s Tri Subclavian Tri 94.80 94.00 CONCLUSIONS Right ICA stenosis <50%. Mild atheromatous plaque right carotid bulb/ICA. Left ICA stenosis <50%. Mild atheromatous plaque left carotid bulb/ICA. Normal antegrade Doppler flow noted in the right vertebral artery. Normal antegrade Doppler flow noted in the left vertebral artery. Taurus Gomez MD (Electronically Signed) Final Date: 27 Jan 2023 12:49 S
--- NOTE | 2023-01-27 09:18 | MR_ITS ---
WS: [id number] MRI BRAIN WITH AND WITHOUT CONTRAST HISTORY: TIA, known Dandy-Walker malformation and Chiari I malformation. COMPARISON: 04/08/2007 TECHNIQUE: Multiplanar imaging performed through the brain with MultiHance 16 ml's IV. No acute infarcts are seen. Burgess-white matter differentiation is well preserved. There are few scatte red T2 and FLAIR signal hyperintensities from small vessel ischemic disease. Mild progression since 2 007. No susceptibility artifacts or prior lacunar infarcts. Ventricles are very mildly prominent. Clivus and pituitary gland are normal. There is a large posterior fossa cystic mass which has been previously described extending over lengt h of 4.8 cm and transversely by 4.3 anteroposterior posterior by 4.5 cm. Consistent with a Dandy-Walk er cyst. No areas of abnormal enhancement. There is very minimal inferior displacement of the cerebel lar tonsils. Mild Chiari I malformation. Postcontrast images are negative for masses or vascular malformations. Dural venous sinuses are normal. Paranasal sinuses: Well aerated with no significant disease. Mastoid air cells: Normal. Calvarium and scalp: Normal. MR/MR head wo/w con [id number] IMPRESSION: 1. No enhancing masses or acute infarct. 2. Known, stable Dandy-Walker malformation. 3. Minimal Chiari 1 malformation is stable. 4. Mild small vessel ischemic disease which has slightly progressed since 2006 . 5. No metastatic disease identified.
[2023-01-27] MEDS: gadobenate dimeglumine 20 mL vial IV (12:03)
== END 2023-01-27 08:59 | disposition home or self-care (01) ==
PROVIDERS: PCP Nurse Practitioner; Visit Provider Family Medicine
DX: G45.9 Transient cerebral ischemic attack, unspecified (principal); G93.5 Compression of brain; I35.1 Nonrheumatic aortic (valve) insufficiency
CPT/HCPCS: 70553; 93306; 93880; A9577

== ENCOUNTER → 2023-02-24 12:34 | Outpatient (BNVA) | payer MEDICARE, SELFPAY | PROVIDERS: PCP Nurse Practitioner; Visit Provider Internal Medicine | DX: I10 Essential (primary) hypertension (principal); J44.9 Chronic obstructive pulmonary disease, unspecified; R06.02 Shortness of breath; E11.9 Type 2 diabetes mellitus without complications; I34.0 Nonrheumatic mitral (valve) insufficiency; G47.33 Obstructive sleep apnea (adult) (pediatric) | CPT/HCPCS: 36415; 80048; 83880; 99204 ==

== ENCOUNTER → 2023-02-24 12:44 | Outpatient (BNVA) | payer MEDICARE, SELFPAY | PROVIDERS: PCP Nurse Practitioner; Visit Provider Internal Medicine | DX: R07.9 Chest pain, unspecified (principal) | CPT/HCPCS: 93005 ==

== ENCOUNTER → 2023-03-25 15:11 | Outpatient (BNVA) | payer MEDICARE, SELFPAY | PROVIDERS: PCP Nurse Practitioner; Visit Provider Nurse Practitioner Family | DX: I10 Essential (primary) hypertension (principal); Z87.891 Personal history of nicotine dependence | CPT/HCPCS: 36415; 80048; 83880; 99214 ==

== ENCOUNTER 2023-03-30 07:55 | Outpatient (CLI) | payer MEDICARE, SELFPAY ==
--- NOTE | 2023-03-30 | ECG_ITS ---
[facility] Test Date: 2023-03-30 Pat Name: Eliza Henry Department: Room: Gender: Female Corporate Legal Assistant: : 1950 Requested By: Yuval Kearns Order Number: [id number] Familia MD: Elzbieta Restrepo M.D. Interpretive Statements NAME OF STUDY: LEXISCAN SESTAMIBI STRESS TEST INDICATION: Chest Pain; Shortness of Breath PROCEDURE: At the baseline, the blood pressure was 147/81 mmHg with a heart rate of 88 bpm. The electrocardiogram showed sinus rhythm with frequent isolated PVC. Normal axis. Nonspecific ST depression V3 to V6 and nonspecific T wave inversion in lead III. The Lexiscan was infused over a period of 20 seconds. A total of 0.4 milligrams of Lexiscan was infused. The stress phase was continued for a total of 5 minutes. Heart rate at the end of the stress phase was 103 bpm with a blood pressure 139/74 mmHg. The EKG at the peak infusion revealed sinus tachycardia with isolated PVCs. No significant ST-T wave changes. Sestamibi was injected 20 seconds after the Lexiscan infusion. Blood pressure at the end of the recovery phase was 139 over 74 mmHg with a heart rate of 102 beats per minute. CONCLUSION: 1. No significant EKG changes with the LexiScan infusion. 2. No LexiScan induced chest pain or cardiac arrhythmia. 3. Normal blood pressure and heart rate response. 4. Sestamibi/sestamibi perfusion scan pending; see separate report. Electronically Signed On 04-07-2023 12:54:11 CDT by Elzbieta Restrepo M.D. [id number]
[2023-03-30 08:15] VITALS: BMI 26.6
--- NOTE | 2023-03-30 08:34 | NMCV_ITS ---
NM khushboo perf SPECT r/s* [id number] Eliza Henry Age: 72 Gender: F : 1950 Exam Date: 03/30/2023 09:34 Ordering Phys: Yuval Kearns M.D ([email or web address]) Technologist: CHERYL Lopez Exam Location: [facility] Indications: SHORTNESS OF BREATH, CHEST PAIN STRESS TEST Please see separate stress test report in [facility] for full findings IMAGE PROTOCOL Rest/Stress 1 Lexiscan Day Radiopharmaceutical Dose (mCi) Administration Site Administered by Rest: Tc-99m 10.5 IV CHERYL Yun Sestamibi Stress:Tc-99m 32.8 IV CHERYL Yun Sestamibi Rest: 30-Mar-2023 60 Discovery 630 Stress: 30-Mar-2023 30 Discovery 630 0.4mg Lexiscan. Images obtained in supine and prone position. SPECT RESULTS Technical Quality: Excellent Raw Data Analysis: Normal Image Corrections: No attenuation or motion correction applied Summed Stress Score: 0 Summed Rest Score: 0 Summed Difference Score: 0 PERFUSION FINDINGS SPECT images demonstrate homogeneous tracer distribution throughout the myocardium. FUNCTIONAL RESULTS (calculated via Gated SPECT) Stress Image LV EF (%): 84 Stress EDV (mL):55 TID: 0.89 Stress ESV (mL):9 FUNCTIONAL FINDINGS: The left ventricle is normal in size. Transient Ischemia Dilatation of 0.89. The left ventricular ejection fraction is normal with a value of 84%. There is hyperdynamic left ventricular global systolic function. IMPRESSIONS 1. Myocardial perfusion imaging is normal. 2. Overall left ventricular systolic function is normal without regional wall motion abnormalities, LVEF=84%. 3. No EKG changes with Lexiscan infusion. 4. Scan indicates low risk for cardiac events. Elzbieta Restrepo MD (Electronically Signed) Final Date: 02 April 2023 14:53 S
[2023-03-30] MEDS: regadenoson 0.4 Mg/5 ml Syringe IVP (10:16)
[2023-03-30 10:40] VITALS: BP 135/75; PULSE 77
== END 2023-03-30 07:56 | disposition home or self-care (01) ==
LOC: CDL 07:56
PROVIDERS: PCP Nurse Practitioner; Visit Provider Internal Medicine
DX: R07.9 Chest pain, unspecified (principal); R06.02 Shortness of breath
CPT/HCPCS: 36415; 78452; 80048; 83880; 93017; 96374; 99204; A9500; J2785

== ENCOUNTER → 2023-04-08 13:36 | Outpatient (BNVA) | payer MEDICARE, SELFPAY | PROVIDERS: PCP Nurse Practitioner; Visit Provider Specialist | DX: M17.11 Unilateral primary osteoarthritis, right knee (principal) | CPT/HCPCS: 20610; J7327 ==

== ENCOUNTER → 2023-05-11 12:16 | Outpatient (BNVA) | payer MEDICARE, SELFPAY | PROVIDERS: PCP Nurse Practitioner; Visit Provider Internal Medicine | DX: R06.02 Shortness of breath (principal); J44.9 Chronic obstructive pulmonary disease, unspecified; G47.33 Obstructive sleep apnea (adult) (pediatric); I10 Essential (primary) hypertension; Z87.891 Personal history of nicotine dependence | CPT/HCPCS: 99214 ==

== ENCOUNTER → 2023-11-09 15:26 | Outpatient (BNVA) | payer MEDICARE, SELFPAY | PROVIDERS: PCP Nurse Practitioner; Visit Provider Internal Medicine | DX: J44.9 Chronic obstructive pulmonary disease, unspecified (principal); G47.33 Obstructive sleep apnea (adult) (pediatric); I10 Essential (primary) hypertension; Z87.891 Personal history of nicotine dependence | CPT/HCPCS: 99214 ==

== ENCOUNTER → 2023-11-10 08:49 | Outpatient (BNVA) | payer MEDICARE, SELFPAY | PROVIDERS: PCP Nurse Practitioner; Referring Provider Physician Assistant; Visit Provider Internal Medicine | DX: E55.9 Vitamin D deficiency, unspecified (principal); E11.9 Type 2 diabetes mellitus without complications; E78.2 Mixed hyperlipidemia; Z79.4 Long term (current) use of insulin | CPT/HCPCS: 99204 ==

== ENCOUNTER → 2023-11-29 15:58 | Outpatient (BNVA) | payer MEDICARE, SELFPAY | PROVIDERS: PCP Physician Assistant; Visit Provider Specialist | DX: M17.12 Unilateral primary osteoarthritis, left knee | CPT/HCPCS: 20610; 73560; 73565; 99214 ==

== ENCOUNTER → 2024-07-28 10:33 | Outpatient (BNVA) | payer MEDICARE, SELFPAY | PROVIDERS: PCP Physician Assistant; Visit Provider Specialist | DX: M17.12 Unilateral primary osteoarthritis, left knee (principal); Z71.89 Other specified counseling | CPT/HCPCS: 20610; J7327 ==

== ENCOUNTER → 2025-06-07 13:41 | Outpatient (BNVA) | payer MEDICARE, SELFPAY | PROVIDERS: PCP Physician Assistant; Referring Provider Physician Assistant; Visit Provider Internal Medicine | DX: G47.33 Obstructive sleep apnea (adult) (pediatric) (principal); R06.09 Other forms of dyspnea; R91.1 Solitary pulmonary nodule; R09.02 Hypoxemia; J30.2 Other seasonal allergic rhinitis; Z87.891 Personal history of nicotine dependence; J44.9 Chronic obstructive pulmonary disease, unspecified; T78.40XA Allergy, unspecified, initial encounter; Y99.9 Unspecified external cause status | CPT/HCPCS: 36415; 85025; 86003; 99214 ==

== ENCOUNTER 2025-06-14 15:03 | Outpatient (CLI) | payer MEDICARE, SELFPAY ==
--- NOTE | 2025-06-14 15:00 | CT_ITS ---
WS: [id number] CT chest wo con [id number] REASON FOR EXAM: COPD IV CONTRAST ADMINISTERED: None. TECHNIQUE: Multiple axial images were obtained without contrast. Coronal and sagittal reconstructions were obtained. COMPARISON examination CT of the chest without contrast 08/06/2020. TOTAL EXAM DLP: 452.[address] scans at [facility] use at least one of these dose optimization techniques: automated exposure control; mA and/or kV adjustment per patient size (includes targeted exams where dose is matched to clinical indication); or iterative reconstruction. FINDINGS: Examination is unchanged compared to the previous study of 03/25/2021. No significant mediastinal or hilar abnormality. No acute pulmonary parenchymal or pleural abnormality. Minimal findings of central lobar emphysema. No interstitial lung disease or bronchiectasis. There is a pleural-based nodule in the extreme medial lower right upper lobe. Unchanged compared to the previous examination. No additional lung nodules, lung mass, or adenopathy. CT/CT chest wo con [id number] IMPRESSION: Stable chest. Mild changes of central lobar emphysema. Stable lung nodule over 5 years. If the patient is a smoker yearly follow-up re commended.
== END 2025-06-14 15:04 | disposition home or self-care (01) ==
LOC: RAD 15:04
PROVIDERS: PCP Physician Assistant; Visit Provider Internal Medicine
DX: J44.9 Chronic obstructive pulmonary disease, unspecified (principal)
CPT/HCPCS: 71250

== ENCOUNTER → 2025-06-20 10:21 | Outpatient (BNVA) | payer MEDICARE, SELFPAY | PROVIDERS: PCP Physician Assistant; Visit Provider Internal Medicine | DX: J44.9 Chronic obstructive pulmonary disease, unspecified (principal); G47.33 Obstructive sleep apnea (adult) (pediatric); Z99.89 Dependence on other enabling machines and devices; Z91.199 Patient's noncompliance with other medical treatment and regimen due to unspecified reason; R91.1 Solitary pulmonary nodule; J30.2 Other seasonal allergic rhinitis; Z87.891 Personal history of nicotine dependence | CPT/HCPCS: 99214 ==

== ENCOUNTER → 2025-07-23 11:13 | Outpatient (BNVA) | payer MEDICARE, SELFPAY | PROVIDERS: PCP Physician Assistant; Visit Provider Internal Medicine | DX: J44.89 Other specified chronic obstructive pulmonary disease (principal); J30.2 Other seasonal allergic rhinitis; R91.1 Solitary pulmonary nodule; G47.33 Obstructive sleep apnea (adult) (pediatric); Z99.89 Dependence on other enabling machines and devices; Z91.199 Patient's noncompliance with other medical treatment and regimen due to unspecified reason; Z87.891 Personal history of nicotine dependence | CPT/HCPCS: 99213; Q3014 ==

== ENCOUNTER → 2025-09-06 13:17 | Outpatient (BNVA) | payer MEDICARE, SELFPAY | PROVIDERS: PCP Physician Assistant; Visit Provider Internal Medicine | DX: J44.89 Other specified chronic obstructive pulmonary disease (principal); G47.33 Obstructive sleep apnea (adult) (pediatric); Z99.89 Dependence on other enabling machines and devices; Z91.199 Patient's noncompliance with other medical treatment and regimen due to unspecified reason; R91.1 Solitary pulmonary nodule; J30.89 Other allergic rhinitis; Z78.9 Other specified health status; Z87.891 Personal history of nicotine dependence | CPT/HCPCS: 99214; Q3014 ==